=== PATIENT | female | born 1960 | race Caucasian/White ===

== ENCOUNTER 2020-04-06 11:16 | Outpatient (REF) | payer MEDICAID, SELFPAY ==
--- NOTE | 2020-04-06 11:26 | XR_ITS ---
EXAMINATION: XR KNEE, RIGHT CLINICAL INFORMATION: Right knee pain COMPARISON: None TECHNIQUE: Four views of the right knee. FINDINGS: There is no fracture, dislocation, destructive process. There is trace fluid suprapatellar bursa which is mildly thickened. There is no definite joint narrowing. No erosive change or chondrocalcinosis. Small marginal osteophytes are noted at the lateral patella and femoral condyles. There is borderline spurring at the anterior lower patella. Small remnant of an osteochondroma suggested distal medial femur, under 5 mm. XR/XR knee RT 4V IMPRESSION: 1. Probable trace effusion. 2. Small marginal osteophytes. No focal joint narrowing or erosive change. 3. Small remnant osteochondroma distal medial femur under 5 mm.
== END 2020-04-06 11:17 | disposition home or self-care (01) ==
LOC: HO.XRAY 11:16
PROVIDERS: PCP Internal Medicine; Visit Provider Family Medicine
DX: M25.561 Pain in right knee (principal)
CPT/HCPCS: 73564

== ENCOUNTER 2020-07-29 08:04 | Outpatient (REF) | payer MEDICAID, SELFPAY ==
--- NOTE | ~2020-07-29 | XR_ITS ---
EXAMINATION: RIGHT KNEE RADIOGRAPHS CLINICAL INFORMATION: Right knee pain. COMPARISON: Right knee radiographs dated 04/06/2020. TECHNIQUE: AP weightbearing, lateral, and sunrise views of the right knee, FINDINGS: No fracture. Right knee is approximated. Mild medial tibiofemoral compartment joint space narrowing. Small tricompartmental marginal osteophytes. Trace suprapatellar effusion. Tiny sessile osteochondroma along the medial distal femoral metaphysis cortex, unchanged. No lytic or blastic osseous lesions. Normal soft tissues. XR/XR knee RT 2V IMPRESSION: Right knee: Mild arthrosis demonstrated by mild tricompartmental marginal osteophytes and mild medial tibiofemoral compartment joint space narrowing. Small, unchanged sessile distal medial metaphyseal osteochondroma/exostosis.
--- NOTE | ~2020-07-29 | XR_ITS ---
EXAMINATION: RIGHT KNEE RADIOGRAPHS CLINICAL INFORMATION: Right knee pain. COMPARISON: Right knee radiographs dated 04/06/2020. TECHNIQUE: AP weightbearing, lateral, and sunrise views of the right knee, FINDINGS: No fracture. Right knee is approximated. Mild medial tibiofemoral compartment joint space narrowing. Small tricompartmental marginal osteophytes. Trace suprapatellar effusion. Tiny sessile osteochondroma along the medial distal femoral metaphysis cortex, unchanged. No lytic or blastic osseous lesions. Normal soft tissues. XR/XR knee standing BI IMPRESSION: Right knee: Mild arthrosis demonstrated by mild tricompartmental marginal osteophytes and mild medial tibiofemoral compartment joint space narrowing. Small, unchanged sessile distal medial metaphyseal osteochondroma/exostosis.
== END 2020-07-29 08:05 | disposition home or self-care (01) ==
LOC: HO.HOSX 08:04
PROVIDERS: Visit Provider Physician Assistant
DX: M17.11 Unilateral primary osteoarthritis, right knee (principal); M25.561 Pain in right knee; M25.562 Pain in left knee
CPT/HCPCS: 20610; 73560; 73565; 99212; J1040

== ENCOUNTER 2020-09-30 16:00 | Outpatient (RCR) | payer MEDICAID, SELFPAY ==
--- NOTE | 2020-08-12 17:48 | MHC.PT.EP ---
[facility] [place] Office [place] Office [place] Office [address] Sharon Marie [address] [phone] F: [phone] F: [phone] F: [phone] F: [phone] Physical Therapy Plan of Care Date of Evaluation: Date of Surgery: NA Diagnosis: Unilateral primary OA R knee Assessment: 60 year old female referred for unilateral primary OA of R knee . 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 She had a cortisone shot about 2 weeks back. On PT examination she presents with TTP along medial joint line,2/10 pain with weight bearing, decreased knee ROM, decreased hip and knee muscle strength, altered posture, and gait. She would benefit from PT to address the aforementioned impairments to increase tolerance to sitting, standing, walking and stair negotiation. She is highly motivated to participate in therapy and return to PLOF. Frequency and Duration: The patient will be seen 2/week for 6 weeks. Short Term Goals: 1. Pt will have 50% decrease in pain which will enable her to sit for 30 minutes in 2 weeks. 2. Pt will be able to move knee through full plane of motion without pain which will enable her to perform sit to stand transition in 3 weeks. 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 Pt will demonstrate an increase in muscle strength by 1 grade which will increase her tolerance to walking and standing in 5 weeks. 2. Pt will be independent with all HEPs for symptoms management and maintenance following d/c in 5 weeks. 3. Pt will return to PLOF in 6 weeks. Treatment Plan: Modalities to reduce pain, spasms and effusion. Manual therapy to restore motion and function. Therapeutic exercise to improve strength and flexibility. Neuromuscular re-education for posture and balance. Therapeutic activities to return to functional activities of daily living. Electronically signed by: Teresa Sargent, PT, DPT Please sign and return to therapist. Thank you for your referral.
--- NOTE | 2020-10-03 13:22 | MHC.PT.DC ---
[facility] [place] Office [place] Office [place] Office [address] Sharon Marie [address] [phone] F: [phone] F: [phone] F: [phone] F: [phone] Physical Therapy Discharge Report Diagnosis: Unilateral primary OA R knee Date of Surgery: NA Date of Evaluation: 08/12/20 Date of Discharge: 10/03/20 Treatments to Date: 9 Cancellations to Date: 0 No Shows to Date: 0 Discharge Status: Achieved Goals Improved Function Independent with HEP Discharge Summary: Cassandra has completed 9 PT visits. She has made significant improvements in her pain levels. She is independent with her HEP as well. She therefore chose to D/C today 2* to low px levels and inepdndence with HEP. Electronically signed by: Teresa Sargent, PT DPT Please sign and return to therapist. Thank you for your referral.
== END 2020-10-03 13:23 | disposition home or self-care (01) ==
LOC: HO.PT 16:00
PROVIDERS: PCP Internal Medicine; Visit Provider Physician Assistant
DX: M17.11 Unilateral primary osteoarthritis, right knee (principal)
CPT/HCPCS: 97110; 97112; 97140; 97161; 97530

== ENCOUNTER → 2020-10-30 12:58 | Outpatient (BNVA) | payer MEDICAID, SELFPAY | PROVIDERS: Visit Provider Physician Assistant | DX: M17.11 Unilateral primary osteoarthritis, right knee (principal) | CPT/HCPCS: 99212 ==

== ENCOUNTER 2020-11-09 16:44 | Outpatient (REF) | payer MEDICAID, SELFPAY ==
--- NOTE | ~2020-11-09 | MR_ITS ---
EXAMINATION: MR KNEE WITHOUT CONTRAST, RIGHT CLINICAL INFORMATION: Unilateral primary osteoarthritis, right knee. Patient reports right knee pain for 2 months with no recent injury or previous surgery. COMPARISON: XR right knee 07/29/2020. TECHNIQUE: MRI of the knee without contrast was performed using routine sequences on a high-field scanner. FINDINGS: MENISCI: Medial Meniscus: There is an oblique tear of the posterior horn of the medial meniscus extending to mid inferior and posterior nonarticular surfaces. There is a small multiloculated posteromedial parameniscal cyst. There is some degenerative irregularity of the posterior root with reactive edema and cystic change in the adjacent tibia. The tear also involves the body where there is extension to the peripheral inferior and nonarticular surfaces. There is some protrusion of the peripheral inferior aspect of the meniscus toward the meniscotibial recess. There is overall mild medial extrusion of the body. There is globular degenerative signal in the anterior horn and root. There appears to be a subtle superimposed horizontal tear extending to the free edge and inner margin undersurface of the junction of the anterior horn and root. Lateral Meniscus: Intact. LIGAMENTS: Cruciate: Intact. Collateral: Intact. EXTENSOR MECHANISM: Intact. ARTICULAR CARTILAGE/BONE: Patellofemoral Compartment: There is moderate to high-grade cartilage loss throughout the lateral facet of the patella with some involvement of the median ridge. There is minor underlying bone marrow edema. There is patchy [id number] cartilage irregularity and thinning in the femoral trochlea, most prominent centrally and medially. There are small marginal osteophytes. Medial Compartment: There is mild cartilage thinning at the medial margin of the weightbearing medial compartment. As stated above, there is edema and cystic change in the tibia deep to the posterior horn-root junction. Lateral Compartment: There is a small focal cartilage fissure in the central weightbearing portion of the lateral tibial plateau. The lateral femoral cartilage appears intact. There are tiny marginal osteophytes. JOINT FLUID AND BURSAE: Small joint effusion. Tiny Mendoza's cyst. MR/MR knee RT wo con IMPRESSION: 1. Diffuse tear of the medial meniscus. Small posteromedial parameniscal cyst. 2. Overall, moderate patellofemoral and mild medial compartment arthrosis. Small cartilage fissure in the central weightbearing portion of the lateral tibial plateau. 3. Small joint effusion and tiny Mendoza's cyst.
== END 2020-11-09 16:45 | disposition home or self-care (01) ==
LOC: HO.MRI 16:44
PROVIDERS: Visit Provider Physician Assistant
DX: M17.11 Unilateral primary osteoarthritis, right knee (principal)
CPT/HCPCS: 73721

== ENCOUNTER → 2020-11-13 13:06 | Outpatient (BNVA) | payer MEDICAID, SELFPAY | PROVIDERS: Visit Provider Physician Assistant | DX: S83.241D Other tear of medial meniscus, current injury, right knee, subsequent encounter (principal); M17.11 Unilateral primary osteoarthritis, right knee | CPT/HCPCS: 99212 ==

== ENCOUNTER 2020-11-25 08:01 | Day surgery (SDC) | payer MEDICAID, SELFPAY ==
--- NOTE | 2020-11-24 10:43 | HO.ANESPROP2 ---
Documented by User: Robyn Fortune NP 11/24/20 10:47 HPI - Anesthesia Eval Consult details Narrative: 60yo F for Right Knee Arthroscopy PMFSH Active Problems Active Problems: All Active Problems (Updated 11/13/20 @ 13:50 by Arlen Barroso PA-C) Tear of medial meniscus of right knee (Acute) Patellofemoral arthritis of right knee (Acute) Past Medical History Medical History Depressed Surgical History Surgical History Hx of cholecystectomy Social History Social History Patient Tobacco Use Status: Never used Tobacco Use of substances other than those prescribed or required for medical reasons: No Have you been hit, kicked, punched, or otherwise hurt by someone within the past year? 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 Meds Allergies Allergy/AdvReac Type Severity Reaction Status Date / Time No Known Allergies Allergy Verified 10/30/20 13:13 [No Known Allergies*] Home Medications Medication Instructions Recorded Confirmed Last Taken Type albuterol sulfate 90 mcg/actuation 1 inh INHALATION Q6H 04/16/20 Unknown History breath activated powder inhaler bupropion HCl 300 mg 24 hr tablet, mg PO 04/16/20 Unknown History extended release (Wellbutrin XL) estradiol 0.0375 mg/24 hr TRANSDERMAL 04/16/20 Unknown History semiweekly transdermal patch famotidine 20 mg tablet 20 mg PO Q12H 04/16/20 Unknown History gabapentin 100 mg capsule 100 mg PO Q12H 04/16/20 Unknown History loratadine 10 mg tablet 10 mg PO Q24H 04/16/20 Unknown History montelukast 10 mg tablet mg PO 04/16/20 Unknown History polyethylene glycol 3350 8.5 gram 17 g PO Q10M 04/16/20 Unknown History oral powder packet trazodone 100 mg tablet PO 04/16/20 Unknown History Exam Exam Date and Time: November 24, 2020 1043 Assessment and Plan Assessment Anesthesia Assessment: Chart Reviewed Documented by User: Lakeisha Montalvo MD 11/25/20 09:16 PMFSH Past Medical History Medical History Depressed Family History Family history of problems with anesthesia: No Surgical History Surgical History Hx of cholecystectomy History of Problems with Anesthesia: No Social History Social History Patient Tobacco Use Status: Never used Tobacco Use of substances other than those prescribed or required for medical reasons: No Have you been hit, kicked, punched, or otherwise hurt by someone within the past year? 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 Meds Allergies Allergy/AdvReac Type Severity Reaction Status Date / Time No Known Allergies Allergy Verified 10/30/20 13:13 [No Known Allergies*] Home Medications Medication Instructions Recorded Confirmed Last Taken Type albuterol sulfate 90 mcg/actuation 1 inh INHALATION Q6H 04/16/20 Unknown History breath activated powder inhaler bupropion HCl 300 mg 24 hr tablet, mg PO 04/16/20 Unknown History extended release (Wellbutrin XL) estradiol 0.0375 mg/24 hr TRANSDERMAL 04/16/20 Unknown History semiweekly transdermal patch famotidine 20 mg tablet 20 mg PO Q12H 04/16/20 Unknown History gabapentin 100 mg capsule 100 mg PO Q12H 04/16/20 Unknown History loratadine 10 mg tablet 10 mg PO Q24H 04/16/20 Unknown History montelukast 10 mg tablet mg PO 04/16/20 Unknown History polyethylene glycol 3350 8.5 gram 17 g PO Q10M 04/16/20 Unknown History oral powder packet trazodone 100 mg tablet PO 04/16/20 Unknown History Exam Airway Mallampati Class: II TM Dist: >3cm Neck ROM: Full Assessment and Plan Assessment Anesthesia Assessment: Anesthesia Plan Discussed Final Anesthetic Review Family History of Problems with Anesthesia: No History of Problems with Anesthesia: No NPO: Yes ASA Class: II Final Preanesthetic Review: No Changes in Pt Med Stat, Meds/Allgs Chart Reviewed, Consent Obtained/Reviewed and Anes Risks/Benef Reviewed Patient Risk: Low Procedure Risk: Low Assessment/Block/Sedation in SS: Assess/Block/Sedation-SS Anesthetic Plan Anesthetic Plan: GA Disposition: Standard PACU
[2020-11-25] VITALS (13 sets, daily range): BP systolic 113–159; BP diastolic 51–90; PULSE 57–70; RESP 16–20; TEMP 36.3–36.7; O2SAT 95–100; BMI 28.1
[2020-11-25] MEDS: Lactated Ringers 1,000 ML 100 ML IVCONT (08:35)
--- NOTE | 2020-11-25 08:37 | MHC.SHP ---
Pre-Procedural Eval Section A Date of Service: 11/25/20 The patient is an INPATIENT: No Changes since office visit: Yes Patient answered all questions; No Cold of Flu in the past 2 weeks, No New Medical Problems and No Changes in Medication The History & Physical has been completed within 30 days and I have reviewed it.: Yes Section B Chief Complaint: Medial Meniscus tear Allergies: Allergies Allergy/AdvReac Type Severity Reaction Status Date / Time No Known Allergies Allergy Verified 10/30/20 13:13 [No Known Allergies*] Plan I have reviewed the history and physical and performed a pertinent physical examination on my patient. No changes have occurred unless specified.
[2020-11-25] MEDS: fentaNYL citrate/PF 100 MCG/2 ML VIAL 50 MCG IVPUSH ×4 (10:47→11:24)
[2020-11-25] MEDS: oxyCODONE HCl Immed Release 5 MG TABLET PO ×2 (10:52→11:02)
[2020-11-25] MEDS: Acetaminophen 325 MG TABLET 650 MG PO (10:53)
--- NOTE | 2020-12-07 16:49 | P.BOP_ITS ---
Brief Operative Note Date of Service: 11/25/20 Pre-op diagnosis: right knee medial meniscus tear Post-op diagnosis: same Procedure: mmt right knee. 2) PF OA right knee Surgeon: Rubin Pham MD Anesthesia: GETA and local Was an Operations Trainer used for this Procedure?: No Estimated blood loss (mL): 5 IV fluids (mL): 500 Pathology: none sent Condition: stable Disposition: PACU
--- NOTE | 2020-12-07 16:50 | W.PM.OPN ---
Operative Note Operative Note Date of Service: 11/25/20 Narrative: Procedure in detail: Patient was brought to the operative room placed supine on the operative table prepped and draped in standard sterile fashion. Time-out gotten of her purpose hyper procedure proper surgeon IV antibiotics per weight were administered. I began by exsanguinating the limb is slightly tourniquet to 300 mm Hg. I then made a anterolateral stab incision with a 15 blade and placed my blunt trocar atraumatically into the patellofemoral joint. I then insufflated joint placed my 30 degree arthroscope. The patellofemoral joint was notable for a full-thickness large cartilage defect in the central portion of the patellar facet. There was some grade 2 changes of the trochlea. The suprapatellar pouch in the gutters were clean. I descended into the medial compartment where I made my medial portal under direct visualization. There was a degenerative posteromedial meniscus tear. I used a combination of shaver and biter to debride this down to stable edges. Approximately 40% of the meniscal volume was removed. Once this was done I examined the notch which showed intact ACL and lateral compartment which was pristine. I then removed all instrumentation and took my final pictures. I then closed with skin glue and injected an additional 20 mL of 0.25% Marcaine with epinephrine in to the knee joint.
== END 2020-11-25 12:30 | disposition home or self-care (01) ==
PROVIDERS: PCP Internal Medicine; Visit Provider Orthopaedic Surgery
PROC: (CPT 29870; principal; 2020-11-25 09:40)
DX: S83.241A Other tear of medial meniscus, current injury, right knee, initial encounter (principal); M23.031 Cystic meniscus, other medial meniscus, right knee; M71.21 Synovial cyst of popliteal space [Baker], right knee; M17.11 Unilateral primary osteoarthritis, right knee; M25.461 Effusion, right knee; X58.XXXA Exposure to other specified factors, initial encounter; Y93.9 Activity, unspecified; Y92.9 Unspecified place or not applicable; Y99.8 Other external cause status
CPT/HCPCS: 29881; J0171; J0690; J1100; J1885; J2250; J2405; J3010

== ENCOUNTER → 2020-12-04 12:42 | Outpatient (BNVA) | payer MEDICAID, SELFPAY | PROVIDERS: Visit Provider Physician Assistant | DX: M17.11 Unilateral primary osteoarthritis, right knee (principal); S83.241A Other tear of medial meniscus, current injury, right knee, initial encounter; W18.30XA Fall on same level, unspecified, initial encounter; Y93.9 Activity, unspecified; Y92.9 Unspecified place or not applicable; Y99.8 Other external cause status; Z96.651 Presence of right artificial knee joint | CPT/HCPCS: 99212 ==

== ENCOUNTER → 2020-12-10 10:57 | Outpatient (BNVA) | payer MEDICAID, SELFPAY | PROVIDERS: PCP Internal Medicine; Visit Provider Orthopaedic Surgery | DX: S83.241D Other tear of medial meniscus, current injury, right knee, subsequent encounter (principal); M17.11 Unilateral primary osteoarthritis, right knee | CPT/HCPCS: 99212 ==

== ENCOUNTER → 2020-12-28 14:15 | Outpatient (BNVA) | payer MEDICAID, SELFPAY | PROVIDERS: Visit Provider Orthopaedic Surgery | DX: M17.11 Unilateral primary osteoarthritis, right knee (principal); M25.561 Pain in right knee; F32.9 Major depressive disorder, single episode, unspecified; Z96.651 Presence of right artificial knee joint | CPT/HCPCS: 99212 ==

== ENCOUNTER → 2021-01-25 14:56 | Outpatient (BNVA) | payer MEDICAID, SELFPAY | PROVIDERS: Visit Provider Orthopaedic Surgery | DX: S83.241D Other tear of medial meniscus, current injury, right knee, subsequent encounter (principal); M17.11 Unilateral primary osteoarthritis, right knee; M25.669 Stiffness of unspecified knee, not elsewhere classified | CPT/HCPCS: 99212 ==

== ENCOUNTER 2021-02-12 15:00 | Outpatient (RCR) | payer MEDICAID, SELFPAY ==
--- NOTE | 2020-12-15 14:46 | MHC.PT.EP ---
[facility] [place] Office [place] Office [place] Office [address] Sharon Marie [address] [phone] F: [phone] F: [phone] F: [phone] F: [phone] Physical Therapy Plan of Care Date of Evaluation: Date of Surgery: 12/07/20 Diagnosis: s/p R posteromedial meniscectomy on 12/07/20 Assessment: pt presents to physical therapy s/p partial posteromedial meniscectomy on 12/07/20 after failing conservative treatment. pt presents to physical therapy with pain, decreased range of motion, decreased strength, impaired functional mobility, impaired postural awareness, and gait deviations. pt is a good candidate for skilled PT due to age, potential remediation of impairments, typical disease/condition progression and prognosis, comorbidities, and motivation. pt would benefit from tailored strengthening and stretching exercise program, functional training, gait training, postural re-training, neuromuscular re-education, modalities as needed for pain, equipment safety demonstration. Frequency and Duration: The patient will be seen 2x/wk for 8 wks Short Term Goals: pt will be I w/ HEP to promote self-management of condition. pt will improve R knee extension to 0 deg to remediate gait impairments on even ground w/ LRAD. Fdc Goals: pt will report a statistically significant improvement in self-reported outcome measure, LEFI, to promote return to PLOF. pt will report <3/10 R knee pain w/ ambulation >2500' to promote pain-limited return to community ambulation w/ LRAD. Treatment Plan: Modalities to reduce pain, spasms and effusion. Manual therapy to restore motion and function. Therapeutic exercise to improve strength and flexibility. Neuromuscular re-education for posture and balance. Therapeutic activities to return to functional activities of daily living. Electronically signed by: Jadyn Quintero PT, DPT Please sign and return to therapist. Thank you for your referral.
--- NOTE | 2021-02-22 14:25 | MHC.PT.DC ---
[facility] [place] Office [place] Office [place] Office [address] Sharon Marie 140 [facility] [phone] F: [phone] F: [phone] F: [phone] F: [phone] Physical Therapy Discharge Report Diagnosis: s/p R posteromedial meniscectomy on 12/07/20 Date of Surgery: 12/07/20 Date of Evaluation: 12/15/20 Date of Discharge: 02/22/21 Treatments to Date: 18 Cancellations to Date: 1 No Shows to Date: 0 Discharge Status: Improved Function Independent with HEP Recommend MD Follow-up Discharge Summary: The patient did not progress as expected throughout this physical therapy plan of care. She was limited by fear avoidance behaviors and appears to have a psychosomatic limitation to her participation in PT. She was often tearful during her sessions as a result of pain specifically with range of motion of the knee. She has not been making meaningful progress in either range of motion or strength. She was educated to prioritize maintaining her knee range of motion and quadriceps strength to optimize function at home and work. She is independent with her home exercise program and is discharged from this physical therapy plan of care due to lack of progress towards goals. Electronically signed by: Jadyn Quintero PT, DPT Please sign and return to therapist. Thank you for your referral.
== END 2021-02-22 14:26 | disposition home or self-care (01) ==
LOC: HO.PT 15:00
PROVIDERS: PCP Internal Medicine; Visit Provider Physician Assistant
DX: S83.241D Other tear of medial meniscus, current injury, right knee, subsequent encounter (principal)
CPT/HCPCS: 97014; 97110; 97112; 97140; 97161; 97164; 97530

== ENCOUNTER → 2021-02-22 08:23 | Outpatient (BNVA) | payer MEDICAID, SELFPAY | PROVIDERS: PCP Internal Medicine; Visit Provider Orthopaedic Surgery | DX: M17.11 Unilateral primary osteoarthritis, right knee (principal); M25.669 Stiffness of unspecified knee, not elsewhere classified; S83.241D Other tear of medial meniscus, current injury, right knee, subsequent encounter | CPT/HCPCS: 20610; 99212; J1100 ==

== ENCOUNTER → 2021-03-01 08:53 | Outpatient (BNVA) | payer MEDICAID, SELFPAY | PROVIDERS: Visit Provider Orthopaedic Surgery ==

== ENCOUNTER 2021-03-19 15:33 | Outpatient (REF) | payer MEDICAID, SELFPAY ==
--- NOTE | ~2021-03-19 | MR_ITS ---
EXAMINATION: MR KNEE WITHOUT CONTRAST, RIGHT CLINICAL INFORMATION: Knee stiffness. Patient reports meniscal surgery November 2020. COMPARISON: X-ray of the right knee July 2020 TECHNIQUE: MRI of the knee without contrast was performed using routine sequences on a high-field scanner. FINDINGS: Exam is limited because of motion artifact. The patient apparently could not hold still for the exam. MENISCI: Medial Meniscus: There is attenuation of the posterior horn and body which is likely at least, in part, due to prior surgery. However, there is some persistent increased signal in the anterior body of the meniscus and anterior horn which may extend to the tibial articular surface. Findings could reflect postsurgical result but cannot exclude recurrent tear. Lateral Meniscus: Intact. LIGAMENTS: Cruciate: Intact. Collateral: Intact. EXTENSOR MECHANISM: Intact. ARTICULAR CARTILAGE/BONE: Patellofemoral Compartment: There is diffuse high-grade cartilage loss noted throughout most of the lateral facet and median ridge of the patella with associated subchondral cystic change and edema, probably without change compared to prior. Additional cartilage heterogeneity and subchondral cystic change and/or edema in the proximal lateral trochlea. Overall [id number] patellofemoral arthrosis, unchanged. Medial Compartment: Small marginal osteophytes. Cartilage is difficult to assess because of motion artifact. Findings indicative of at least mild arthrosis similar to prior. Lateral Compartment: Normal. JOINT FLUID AND BURSAE: Mild joint effusion. MR/MR knee RT wo con IMPRESSION: Abnormal medial meniscus likely at least, in part, related to postsurgical change. Cannot exclude recurrent meniscal tear particularly in the anterior body and the anterior horn. Stable osteoarthritis.
== END 2021-03-19 15:34 | disposition home or self-care (01) ==
LOC: HO.MRI 15:33
PROVIDERS: PCP Internal Medicine; Visit Provider Orthopaedic Surgery
DX: M17.11 Unilateral primary osteoarthritis, right knee (principal); S83.241D Other tear of medial meniscus, current injury, right knee, subsequent encounter; M25.661 Stiffness of right knee, not elsewhere classified
CPT/HCPCS: 73721

== ENCOUNTER → 2021-03-26 11:15 | Outpatient (BNVA) | payer MEDICAID, SELFPAY | PROVIDERS: PCP Internal Medicine; Visit Provider Orthopaedic Surgery | DX: M25.669 Stiffness of unspecified knee, not elsewhere classified (principal); M17.11 Unilateral primary osteoarthritis, right knee; S83.241D Other tear of medial meniscus, current injury, right knee, subsequent encounter | CPT/HCPCS: 99212 ==

== ENCOUNTER 2021-08-30 10:59 | Outpatient (REF) | payer MEDICAID, SELFPAY ==
--- NOTE | ~2021-08-30 | XR_ITS ---
EXAMINATION: XR KNEE, RIGHT CLINICAL INFORMATION: Pain. COMPARISON: None TECHNIQUE: Four views of the right knee. FINDINGS: There is mild loss of tricompartment joint space with bilateral medial and lateral compartment periarticular spurring. There is mild suprapatellar joint effusion. There is anterior superior patellar enthesophytes. No visible acute fracture or dislocation seen. XR/XR knee RT 4V IMPRESSION: Degenerative changes right knee with mild suprapatellar joint effusion. No loose bodies or bony erosive changes.
== END 2021-08-30 11:00 | disposition home or self-care (01) ==
LOC: HO.XRAY 10:59
PROVIDERS: PCP Internal Medicine; Visit Provider Internal Medicine
DX: M25.561 Pain in right knee (principal)
CPT/HCPCS: 73564

== ENCOUNTER 2023-10-24 16:13 | Outpatient (REF) | payer OTHER, SELFPAY | END 2023-10-24 16:14 | disposition home or self-care (01) | LOC: HO.LNP 16:13 | PROVIDERS: Visit Provider Advanced Practice Midwife | DX: R30.0 Dysuria (principal) | CPT/HCPCS: 87086 ==

== ENCOUNTER 2023-12-01 09:09 | Outpatient (REF) | payer OTHER, SELFPAY ==
[2023-12-05 19:48] LABS: Immunoglobulin A 237 mg/dL (70-320); Transglutaminase Ab IgG <1.0 U/mL; Transglutaminase IgA <1.0 U/mL
== END 2023-12-01 09:10 | disposition home or self-care (01) ==
LOC: HO.CHCLDS 09:09
PROVIDERS: Visit Provider Internal Medicine
DX: K90.49 Malabsorption due to intolerance, not elsewhere classified (principal)
CPT/HCPCS: 36415; 82784; 86364

== ENCOUNTER 2024-07-12 14:20 | Outpatient (REF) | payer OTHER, SELFPAY ==
--- NOTE | ~2024-07-12 | XR_ITS ---
EXAMINATION: XR KNEE, RIGHT CLINICAL INFORMATION: pain COMPARISON: 08/30/2021. TECHNIQUE: Two views of the right knee. FINDINGS: No fracture, dislocation, or bone lesion. Normal bone mineralization. Mild to moderate tricompartmental osteoarthrosis, most significant in the patellofemoral compartment. Spurring of the tibial spines. Normal alignment. Small suprapatellar joint effusion. Normal soft tissues. XR/XR knee RT 2V IMPRESSION: 1. Mild to moderate tricompartmental osteoarthritis, most significant in the patellofemoral joint. 2. Small joint effusion. Electronically signed by: Franck Garcia MD 07/15/2024 03:04 PM EDT
--- OUTSIDE RECORDS SUMMARY | 2024-07-12 15:58 | XMS_ITS | Encounter Summary ---
Author Organization [employer] Address [address] [facility] 7 [place] [address] Care Team Providers Care Shipping Manager Name Role Phone Jamie Lockhart MD Primary Care Prov ider Reason for Visit * Reason Onset Date Comments Triage 03/15/2022 Encounter Details Date Type Department Care Team (Late st Contact Info) Description 03/15/2022 Refill [facility] MEDICINE [address] [place] [address] Jamie Lockhart MD [address] [place] [address] Social History Tobacco Use Types Packs/Day Years Used Date Smoking Tobacco: Never Assessed Comments Unknown Sex and Gender Information Value Date Recorded Sex Assigned at Female 02/07/2022 10:25 AM EDT Legal Sex Female 10:25 AM EDT Gender Identity Female 02/07/2022 10:25 AM EDT Sexual Orientation Straight 02/07/2022 10 :25 AM EDT documented as of this encounter Miscellaneous Notes * Telephone Encounter - Araceli Gonzalez RN - 03/23/2022 12:11 PM EST Triage call Pt reports testing positive for Covid 12 PM. 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 Pt has mild symptoms dry cough, body aches, headache, sneezing, runny nose, neg for fever. Pt is advised if develops fever of 103, chest pain/pressure and difficulty breathing to seek evaluation att hospital. Pt agrees. Home care is reviewed thoroughly with Pt . Pt is advised regarding available medications with in five day window but, Pt declines these at this time. Pt agrees to home care disposition and will call again if needs to. Protocol Used: COVID-19 - Diagnosed or Suspected (Adult) Protocol-Based Disposition: Home Care Positive Triage Question: * [1] COVID-19 diagnosed by positive lab test (e.g., PCR, rapid self-test kit) AND [2] mild symptoms (e.g., cough, fever, others) AND [3] no complications or SOB * All higher-acuity triage questions were negative Care Advice Discussed: * Reassurance and Education - Positive COVID-19 Lab Test and Mild Symptoms * General Care Advice for COVID-19 Symptoms * Cough Medicines * Cough Syrup With Dextromethorphan * Cough Syrup With Dextromethorphan - Extra Notes and Warnings * Humidifier * Coughing Spells * Pain and Fever Medicines * Mild Stomach and Intestinal Symptoms During COVID-19 Illness * Reasons To Call Back - Fever over 103 F (39.4 C) - Fever lasts over 3 days - Fever returns after being gone for 24 hours - Chest pain or difficulty breathing occurs - You become worse * COVID-19 - How to Protect Others - When You Are Sick With COVID-19 * Telephone Encounter - Devon Kilgore - 03/23/2022 11:40 AM EST Symptoms: Cough, Body Aches, Chills, Wheezing Outcome: Schedule an urgent appointment (within 1 hour) or talk to a nurse or provider soon Reason: Pt came out positive with Covid , Pt requesting Paxlovid med The caller accepted this outcome documented in this encounter Plan of Treatment Not on file documented as of this encounter Visit Diagnoses Not on filedocumented in this encounter Care Teams Shipping Manager Relationship Specialty Start Date End Date Jamie Lockhart MD [address] [place] [address] PCP - General Internal Medicine 03/25/19 documented as of this encounter
--- OUTSIDE RECORDS SUMMARY | 2024-07-12 15:58 | XMS_ITS | Encounter Summary ---
Author Organization [employer] Address [address] [place] [address] 7 [place] [address] Care Team Providers Care Dean Of Education Name Role Phone Jamie Lockhart MD Primary Care Prov ider Encounter Details Date Type Department Care Team (Late st Contact Info) Description 08/05/2022 Orders Only [facility]C MED & PEDS [address] [place], [place] [phone] Jamie Lockhart MD [address] [place] [address] Social History Tobacco Use Types Packs/Day Years Used Date Smoking Tobacco: Never Assessed PHQ-2 Answer Date Recorded Patient Health Questionnaire-2 Score 0 04/29/2022 Comments Unknown Sex and Gender Information Value Date Recorded Sex Assigned at Female 02/07/2022 10:25 AM EDT Legal Sex Female 10:25 AM EDT Gender Identity Female 02/07/2022 10:25 AM EDT Sexual Orientation Straight 02/07/2022 10 :25 AM EDT documented as of this encounter Plan of Treatment Not on file documented as of this encounter Visit Diagnoses Not on filedocumented in this encounter Care Teams Dean Of Education Relationship Specialty Start Date End Date Jamie Lockhart MD [address] [place] [address] PCP - General Internal Medicine 03/25/19 documented as of this encounter
--- OUTSIDE RECORDS SUMMARY | 2024-07-12 15:58 | XMS_ITS | Encounter Summary ---
Author Organization [employer] Address [address] [place] [address] 7 [place] [address] Care Team Providers Care Slipman Name Role Phone Jamie Lockhart MD Primary Care Prov ider Encounter Details Date Type Department Care Team (Late st Contact Info) Description 08/10/2022 Orders Only [facility] CHC MED & PEDS [address] [place], [place] [phone] Johana Alarcon LPN Social History Tobacco Use Types Packs/Day Years [...] on filedocumented in this encounter Care Teams Slipman Relationship Specialty Start Date End Date Jamie Lockhart MD [address] [place] [address] PCP - General Internal Medicine 03/25/19 documented as of this encounter
--- OUTSIDE RECORDS SUMMARY | 2024-07-12 15:59 | XMS_ITS | Data Portability ---
Author Organization [facility] [facility] [address] Address [address] [place] [address] Assessment Encounter Date Assessment Date Assessment LastModified by Organization Details LastModified Time 11/06/2023 11/06/2023 You are going to be treated for a Urinary Tract Infection. The following are recommendations to help with your symptoms and recovery: 1. Drink Plenty of fluids - Stay hydrated 2. Finish full antibiotic course 3. I recommend starting a Probiotic - I recommend Florastor 4. If you take Azo - this will help the burning and urgency feeling - just be aware it will turn your urine bright yellow. I would not hesitate to be seen again if you develop: 1. Severe Back Pain 2. Abdominal Pain 3. Nausea and Vomiting 4. Vaginal Discharge or Bleeding 5. Fever > 101.0 You symptoms should improve within 72 hours for a typically UTI. If a urine culture was sent out to the lab for you we should get the results back within 4 days. This will be able to prove that your symptoms are caused by a UTI and it will also verify that the correct antibiotic was prescribed. Thank you for using [employer] - please don't hesistate to call our office if you have any questions or concerns. ines Not available 11/06/2023 16:12:22 Plan of Treatment Reminders Order Date Submit Date Provider Last Modified By Organization Details Last Modified Time Details Appointments None recorded. Lab urinalysis, dipstick 2023 024 ines _wendy avery, [address] [place] [address], [id number], 16:12:26 culture, urine 2023 024 ROHAN [facility] ([place]), [address], [place], [address], 22:06:04 Referral None recorded. Procedures None recorded. Surgeries None recorded. Imaging None recorded. Medication Orders cephalexin 500 mg capsule 2023 PROSPECT [id number], [address] [facility], [facility], [place], [address], 16:12:37 Patient TargetsNo targets recorded. Patient InstructionsNo instructions recorded. Reason for Referral None Reported. Results Created Date Observation Date Name Description Value Unit Range Abnormal Flag Note LastModifiedBy Organization Detail LastModifiedTime 11/06/1911/07/2023 URINE CULTU RE, ROUTI NE urine culture, routine FINAL REPORT Not Available [facility] ([facility]) [address] [place], [address], 11/07/2023 22:06:04 11/06/19 24 11/07/2023 URINE CULTU RE, ROUTI NE result 1 COMMEN T Mixed uroge nital zak Not Available [facility] ([facility]) [address] [facility], [place], [address], 11/07/2023 22:06:04 11/06/19 24 11/06/2023 urina lysis , dipst ick Unknown Analyte Yellow Not Available wendy [address], [address], 11/06/2023 15:36:04 11/06/19 24 11/06/2023 urina lysis , dipst ick Unknown Analyte Slight ly Cloudy Not Available elizabeth boggs [address] [place], [address], 11/06/2023 15:36:04 11/06/19 24 11/06/2023 urina lysis , dipst ick Unknown Analyte Negati ve Not Available elizabeth boggs [address] [place], [address], 11/06/2023 15:36:04 11/06/19 24 11/06/2023 urina lysis , dipst ick Unknown Analyte Negati ve Not Available elizabeth boggs [address] [place], [address], 11/06/2023 15:36:04 11/06/19 24 11/06/2023 urina lysis , dipst ick Unknown Analyte Negati ve Not Available elizabeth boggs [address] [place], [address], 11/06/2023 15:36:04 11/06/19 24 11/06/2023 urina lysis , dipst ick Unknown Analyte 1.030 Not Available wendy [address] [place], [address], 11/06/2023 15:36:04 11/06/19 24 11/06/2023 urina lysis , dipst ick Unknown Analyte Modera te Not Available elizabeth boggs [address] [place], [address], 11/06/2023 15:36:04 11/06/19 24 11/06/2023 urina lysis , dipst ick Unknown Analyte 5.5 Not Available wendy [address] [place], [address], 11/06/2023 15:36:04 11/06/19 24 11/06/2023 urina lysis , dipst ick Unknown Analyte 100 mg/dL Not Available elizabeth boggs [address] [place], [address], 11/06/2023 15:36:04 11/06/19 24 11/06/2023 urina lysis , dipst ick Unknown Analyte 0.2 E.U./d L Not Available [facility] [address] [place], [address], 11/06/2023 15:36:04 11/06/19 24 11/06/2023 urina lysis , dipst ick Unknown Analyte Negati ve Not Available elizabeth yr [facility] [address] [place], [address], 11/06/2023 15:36:04 11/06/19 24 11/06/2023 urina lysis , dipst ick Unknown Analyte Negati ve Not Available elizabeth yr [facility] [address] [place], [address], 11/06/2023 15:36:04 Result Notes None recorded. 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 Medical Equipment None Reported. Allergies No known drug allergies Medications Name Sig Start Date Stop Date Status Note LastModified by Organization Details LastModified Time phenazopyri dine 200 mg tablet PLEASE SEE ATTACHED FOR DETAILED DIRECTION S 11/05 completed Not Available Not Available Not Available venlafaxine ER 150 mg capsule,ext ended release 24 hr TAKE 1 CAPSULE (150 MG) BY MOUTH IN THE MORNING active Not Available Not Available No t Available sumatriptan 50 mg tablet MAY REPEAT DOSE ONCE IN 2 HOURS IF NO RELIEF. DO NOT EXCEED 2 DOSES IN 24 HOURS. active Not Available Not Available No t Available propranolol 60 mg tablet TAKE 1 TABLET BY MOUTH TWICE A DAY FOR 30 DAYS active Not Available Not Available No t Available estradiol 0.05 mg/[address] PATCH ONTO THE SKIN 2 TIMES A WEEK. active Not Available Not Available No t Available terbinafine HCl 250 mg tablet TAKE 1 TABLET (250 MG) BY MOUTH ONCE PER DAY. active Not Available Not Available No t Available cephalexin 500 mg capsule TAKE 1 CAPSULE BY MOUTH EVERY 6 HOURS FOR 5 DAYS active Not Available Not Available No t Available hydroxyzine HCl 25 mg tablet TAKE 1 TABLET (25 MG) BY MOUTH IF NEEDED IN THE MORNING, AT NOON, AND AT BEDTIME FOR ANXIETY. 11/05 completed Not Available Not Available Not Available ondansetron 4 mg disintegrat ing tablet DISSOLVE 1 TAB BY MOUTH ON TONGUE DAILY 30 active Not Available Not Available No t Available Murine Ear 6.5 % drops ADMINISTE R 5-10 DROPS INTO AFFECTED EAR(S) 2 TIMES DAILY FOR 4 DAYS. active Not Available Not Available No t Available progesteron e micronized 100 mg capsule TAKE 1 CAPSULE BY MOUTH EVERY DAY active Not Available Not Available No t Available nitrofurant oin monohydrate /macrocryst als 100 mg capsule TAKE 1 CAPSULE BY MOUTH TWICE A DAY FOR 7 DAYS 11/05 completed Not Available Not Available Not Available Vitals Date Recorded Body height Body mass index (BMI) Body weight Respiratory rate Body temperature Heart rate Oxygen saturation Oxygen saturation in Arterial blood by Pulse oximetry Systolic blood pressure Diastolic blood pressure Provider Name and Address Organization Details Last Updated DateTime 170.18 cm 27.9 kg/m2 15922.4 4 g 18 /min 98 [degF] 97 /min 97 % 97 % 122 mm[Hg] 78 mm[Hg] Lur[facility] 15:37:41 Social History Question Answer Notes LastModified by Organizat ion Details LastModified Time Tobacco Smoking Status Never Smoker Lurdes candelario PA Tita [facility] 11/06/2023 15:35:43 What Is Your Level Of Alcohol Consumption? Occasional Information not available 11/06/2023 Do You Use Any Illicit Or Recreational Drugs? Yes Marijuana Information not available 11/06/2023 Have You Recently Traveled Abroad? No Information not available 11/06/2023 Do You Or Have You Ever Used Any Other Forms Of Tobacco Or Nicotine? No Information not available 11/06/2023 Sex: Unknown Functional Status None recorded. Mental Status None recorded. Family History Relationship Description Onset Age of this Age Resolved Age Notes LastModified by Organization Details LastModified Time Father No current problems or disability Not available 11/05 15:35:22 Mother No current problems or disability Not available 11/05 15:35:22 Medical History No medical history recorded. Gynecological HistoryNo gynecological history recorded. 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 Health Concerns Section Related Observation LastModified by Organization Detai ls LastModified Time None Recorded Concern Status LastModified by Organization Details LastModified Time None Recorded Advance Directives Directive None Recorded Payers Encounter Date Sequence Insurance Name Policy Number Policy Warern Covered Member ID Warren Member ID Guarantor Name 11/06/2023 1 [facility] [id number] Cassandra Vidal [id number] Cassandra Vidal Notes Date Note Type Note Provider Name and Address Organization Details Recorded Time 11/06/2023 text/html Urinary Complain t FemaleReported [email or web address] Symptoms:no pain in the flank; no fever/chills; no incontinence;pain during urination;urgency;ur inary frequency Severity:moderate Modifying Factors:nothing gives relief pt reports urinary pressure , urgency and hesitancy onset three days agofeels similar to UTI'no low back pain, CATHRYN STEINBERG NP [address] [place], [address], [place] - [facility] 11/06/2023 16:15:02 OBGyn Episode No OBEpisode recorded.
--- OUTSIDE RECORDS SUMMARY | 2024-07-12 15:59 | XMS_ITS | Encounter Summary ---
Author Organization [employer] Address [address] [facility] 7 [place] [address] Care Team Providers Care Statistical Financial Analyst Name Role Phone Jamie Lockhart MD Primary Care Prov ider Reason for Visit * Reason Onset Date Comments Results 07/29/2022 Encounter Details Date Type Department Care Team ([facility] st Contact Info) Description 07/29/2022 Telephone [facility] MEDICINE [address] [place] [address] Jamie Lockhart MD [address] [place] [address] Results Social History Tobacco Use Types Packs/Day Years [...] encounter Miscellaneous Notes * Telephone Encounter - Rosa Morales RN - 07/29/2022 10:27 AM EDT TC placed to pt at [phone] in regards to below message. Informed pt of lab results and her cholesterol levels. Pt states she is currently on a diet and losing weight. Informed pt RN would relay message to PCP to inquire. Pt verbalized understanding and will stick to eating healthier to help her cholesterol go down. Pt to f/u PRN. * Telephone Encounter - Dong Estrada - 07/29/2022 10:21 AM EDT Tc from pt requesting a call back regarding blood work results. Please contact pt at [phone] documented in this encounter Plan of Treatment Not on file documented as of this encounter Visit Diagnoses Not on filedocumented in this encounter Care Teams Statistical Financial Analyst Relationship Specialty Start Date End Date Jamie Lockhart MD [address] [place] [address] PCP - General Internal Medicine 03/25/19 documented as of this encounter
--- OUTSIDE RECORDS SUMMARY | 2024-07-12 15:59 | XMS_ITS | Encounter Summary ---
Author Organization [employer] Address [address] [place] [address] 7 [place] [address] Care Team Providers Care Hvac Refrigeration Technician Name Role Phone Jamie Lockhart MD Primary Care Prov ider Reason for Visit * Reason Onset Date Comments Referral 12/22/2022 Encounter Details Date Type Department Care Team ([facility] st Contact Info) Description 12/22/2022 Telephone [facility] CHC MED & PEDS [address] [place] [address] Jamie Lockhart MD [address] [place] [address] Referral Social History Tobacco Use Types Packs/Day Years Used Date Smoking Tobacco: Never Assessed Depression Answer Date Recorded Patient Health Questionnaire-9 Score 13 10/03/2022 Depression Answer Date Recorded Patient Health Questionnaire-2 Score 3 10/03/2022 Comments Unknown Sex and Gender Information Value Date Recorded Sex Assigned at Female 02/07/2022 10:25 AM EDT Legal Sex Female 10:25 AM EDT Gender Identity Female 02/07/2022 10:25 AM EDT Sexual Orientation Straight 02/07/2022 10 :25 AM EDT documented as of this encounter Miscellaneous Notes * Telephone Encounter - Emeli Lorenzana - 12/26/2022 3:57 PM EDT VM left for patient that they are no energy management specialist in the area that accepts her insurance. I advised her to call her insurance to see if they can provide any information of energy management specialist that will accept her insurance and call us and we will fax referral. * Telephone Encounter - Christina Marquez - 12/22/2022 8:23 AM EDT Tc from pt requesting status on derm referral and where it may have been sent to . documented in this encounter Plan of Treatment Not on file documented as of this encounter Visit Diagnoses Not on filedocumented in this encounter Additional Health Concerns Assessment Noted Time PHQ-9 Depression Total Score: 13 023 11:23 AM EDT documented as of this encounter Care Teams Hvac Refrigeration Technician Relationship Specialty Start Date End Date Jamie Lockhart MD [address] [place] [address] PCP - General Internal Medicine 03/25/19 documented as of this encounter
--- OUTSIDE RECORDS SUMMARY | 2024-07-12 15:59 | XMS_ITS | Encounter Summary ---
Author Organization [employer] Address [address] [facility] 7t [place] [address] Care Team Providers Care Drill Operator Pneumatic Name Role Phone Jamie Lockhart MD Primary Care Prov ider Encounter Details Date Type Department Care Team ([facility] st Contact Info) Description 07/12/2024 1:40 PM EDT Office Visit [facility] CHC MED & PEDS [address] [place], [place] [phone] Celi Berrios MD [address] [place] [address] Acute pain of right knee (Primary Dx) Social History Tobacco Use Types Packs/Day Years Used Date Smoking Tobacco: Never Smokeless Tobacco: Never Alcohol Use Standard Drinks/Week Comments Yes 0 (1 standard drink = 0.6 oz pur e alcohol) Depression Answer Date Recorded Patient Health Questionnaire-9 Score 1 04/13/2023 Patient Health Questionnaire-9 Score 1 04/13/2023 Last PHQ-9: Questionnaire Data Not on file 0 04/13/2023 Housing Stability Answer Date Recorded What is your housing situation today? I have neida brody 12/18/[address] you li ve. Do you have problems with any of the following? None of the above 12/18/2023 Food Insecurity Answer Date Recorded Within the past 12 months, y ou worried that your food would run out before you got money to buy more: Never True 12/18/2023 Within the past 12 months,th e food you bought just didn't last and you didn't have enough money to get more: Never True 12/2023 Transportation Answer Date Recorded In the past 12 months, has l ack of transportation kept you from medical appts, meetings, work or from getting things needed for daily living? No 12/18/2023 Utilities Answer Date Recorded In the past 12 months, has t he electric, gas, oil or water company threatened to shut off services in your home? No 12/18/2023 Depression Answer Date Recorded Patient Health Questionnaire-2 Score 1 04/13/2023 Internet Access Answer Date Recorded Internet Access Q1 Yes 12/18/2023 Internet Access Q2 Not on file 12/18/2023 Comments No Sex and Gender Information Value Date Recorded Sex Assigned at Female 02/07/2022 10:25 AM EDT Legal Sex Female 10:25 AM EDT Gender Identity Female 02/07/2022 10:25 AM EDT Sexual Orientation Straight 02/07/2022 10 :25 AM EDT documented as of this encounter Last Filed Vital Signs Vital Sign Reading Time Taken Comments Blood Pressure 121/58 07/12/2024 1:29 PM EDT Pulse 70 07/12/2024 1:29 PM EDT Temperature 36.1 ??C (97 ??F) 07/12/2024 1:29 PM EDT Respiratory Rate 16 07/12/2024 1:29 PM EDT Oxygen Saturation 96% 07/12/2024 1:29 PM EDT Inhaled Oxygen Concentration - - Weight 82.1 kg (181 lb) 07/12/2024 1:29 PM EDT Height 170 cm (5' 6.93 ) 07/12/2024 1:29 PM EDT Body Mass Index 28.41 07/12/2024 1:29 PM EDT documented in this encounter Progress Notes * Celi Berrios MD - 07/12/2024 1:40 PM EDT Subjective Patient ID: Cassandra Vidal is a 63 y.o. female who presents for No chief complaint on file.. Knee Pain The pain is present in the right knee. The quality of the pain is described as aching. The pain is at a severity of 6/10. The pain is moderate. The pain has been Fluctuating since onset. Associated symptoms include an inability to bear weight. The symptoms are aggravated by movement and weight bearing. Review of Systems Constitutional: Negative. Respiratory: Negative. Negative for shortness of breath. Cardiovascular: Negative for chest pain and palpitations. Gastrointestinal: Negative. Genitourinary: Negative. Musculoskeletal: Negative for neck pain. Neurological: Negative for headaches. Objective Physical Exam Constitutional: Appearance: Normal appearance. Cardiovascular: Rate and Rhythm: Normal rate and regular rhythm. Pulses: Normal pulses. Heart sounds: Normal heart sounds. Pulmonary: Effort: Pulmonary effort is normal. Musculoskeletal: Right knee: Tenderness present. Neurological: Mental Status: She is alert. Assessment/Plan Diagnoses and all orders for this visit: Acute pain of right knee Comments: Xray ordered today Advised Ibuprofen/ tylenol and Ice Advised strength training Orders: - XR Knee 1-2 Views Right; Future Other orders - ibuprofen 800 MG tablet; Take 1 tablet (800 mg) by mouth 3 times daily. - acetaminophen (Tylenol Extra Strength) 500 MG tablet; Take 1 tablet (500 mg) by mouth every 6 (six) hours if needed for mild pain. documented in this encounter Plan of Treatment Scheduled Orders Name Type Priority Associated Diagnoses Orde r Schedule XR Knee 1-2 Views Right Imaging Routine Acute pain of right knee Expected: 07/12/2024, Expires: 07/12/2025 documented as of this encounter Visit Diagnoses Diagnosis Acute pain of right knee- Primary documented in this encounter Additional Health Concerns Assessment Noted Time PHQ-9 Depression Total Score: 1 04/13/19 24 8:48 AM EST documented as of this encounter Care Teams Drill Operator Pneumatic Relationship Specialty Start Date End Date Jamie Lockhart MD [address] [place] [address] PCP - General Internal Medicine 03/25/19 documented as of this encounter
--- OUTSIDE RECORDS SUMMARY | 2024-07-12 15:59 | XMS_ITS | Encounter Summary ---
Author Organization [employer] Address [address] [place] [address] 7 [place] [address] Care Team Providers Care Office 365 Consultant Name Role Phone Jamie Lockhart MD Primary Care Prov ider Encounter Details Date Type Department Care Team (Late st Contact Info) Description 07/18/2022 Orders Only [facility] CHC MED & PEDS [address] [place], [place] [phone] Jamie Lockhart MD [address] [place] [address] Social History Tobacco Use Types Packs/Day Years [...] on filedocumented in this encounter Care Teams Office 365 Consultant Relationship Specialty Start Date End Date Jamie Lockhart MD [address] [place] [address] PCP - General Internal Medicine 03/25/19 documented as of this encounter
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
--- OUTSIDE RECORDS SUMMARY | 2024-07-12 15:59 | XMS_ITS | Encounter Summary ---
Author Organization [employer] Address [address] [facility] 7t [place] [address] Care Team Providers Care Russian Rubber Name Role Phone Jamie Lockhart MD Primary Care Prov ider Encounter Details Date Type Department Care Team (Latest Contact Info) Description 07/12/2024 Travel Social History Tobacco Use Types Packs/Day Years [...] documented as of this encounter Care Teams Russian Rubber Relationship Specialty Start Date End Date Jamie Lockhart MD [address] [place] [address] PCP - General Internal Medicine 03/25/19 documented as of this encounter
--- OUTSIDE RECORDS SUMMARY | 2024-07-12 15:59 | XMS_ITS | Encounter Summary ---
Author Organization [employer] Address [address] [facility] 7 [place] [address] Care Team Providers Care Welding Machine Operator Submerged Arc Name Role Phone Jamie Lockhart MD Primary Care Prov ider Reason for Visit * Reason Comments Med Refill Encounter Details Date Type Department Care Team ([facility] st Contact Info) Description 03/28/2024 Refill [facility] CHC MED & PEDS [address] [place], [place] [phone] Jamie Lockhart MD [address] [place] [address] Social History Tobacco Use Types Packs/Day Years [...] documented as of this encounter Care Teams Welding Machine Operator Submerged Arc Relationship Specialty Start Date End Date Jamie Lockhart MD [address] [place] [address] PCP - General Internal Medicine 03/25/19 documented as of this encounter
--- OUTSIDE RECORDS SUMMARY | 2024-07-12 15:59 | XMS_ITS | Encounter Summary ---
Author Organization [employer] Address [address] [facility] 7 [place] [address] Care Team Providers Care Shiftman Name Role Phone Jamie Lockhart MD Primary Care Prov ider Reason for Visit * Reason Onset Date Comments Appointment Request 05/31/2023 Encounter Details Date Type Department Care Team ([facility] st Contact Info) Description 05/31/2023 Telephone [facility] MEDICINE [address] [place] [address] Jamie Lockhart MD [address] [place] [address] Appointment Request Social History Tobacco Use Types Packs/Day Years Used Date Smoking Tobacco: Never Assessed Depression Answer Date Recorded Patient Health Questionnaire-9 Score 1 04/13/2023 Patient Health Questionnaire-9 Score 1 04/13/2023 Last PHQ-9: Questionnaire Data Not on file 0 04/13/2023 Housing Stability Answer Date Recorded What is your housing situation today? I have neida brody 01/23/[address] you li ve. Do you have problems with any of the following? None of the above 01/23/2023 Food Insecurity Answer Date Recorded Within the past 12 months, y ou worried that your food would run out before you got money to buy more: Never True 01/23/2023 Within the past 12 months,th e food you bought just didn't last and you didn't have enough money to get more: Never True Transportation Answer Date Recorded In the past 12 months, has l ack of transportation kept you from medical appts, meetings, work or from getting things needed for daily living? No 01/23/2023 Utilities Answer Date Recorded In the past 12 months, has t he electric, gas, oil or water company threatened to shut off services in your home? No 01/23/2023 Depression Answer Date Recorded Patient Health Questionnaire-2 Score 1 04/13/2023 Comments Unknown Sex and Gender Information Value Date Recorded Sex Assigned at Female 02/07/2022 10:25 AM EDT Legal Sex Female 10:25 AM EDT Gender Identity Female 02/07/2022 10:25 AM EDT Sexual Orientation Straight 02/07/2022 10 :25 AM EDT documented as of this encounter Miscellaneous Notes * Telephone Encounter - Bradyjanie Aguillon - 05/31/2023 9:40 AM EST Tc from pt requesting appt with Water Quality Assistant, pt denied any immediate concerns. Please contact pt at [phone]. documented in this encounter Plan of Treatment Not on file documented as of this encounter Visit Diagnoses Not on filedocumented in this encounter Additional Health Concerns Assessment Noted Time PHQ-9 Depression Total Score: 1 04/13/19 24 8:48 AM EST documented as of this encounter Care Teams Shiftman Relationship Specialty Start Date End Date Jamie Lockhart MD [address] [place] [phone] PCP - General Internal Medicine 03/25/19 documented as of this encounter
--- OUTSIDE RECORDS SUMMARY | 2024-07-12 15:59 | XMS_ITS | Encounter Summary ---
Author Organization [employer] Address [address] [place] [address] Care Team Providers Care Analytical Research Chemist Name Role Phone Jamie Lockhart MD Primary Care Prov ider Reason for Visit * Reason Onset Date Comments Referral 11/23/2022 dermatology Encounter Details Date Type Department Care Team ([facility] st Contact Info) Description 11/23/2022 Telephone [facility] MED & PEDS [address] [place] [address] Jamie Lockhart MD [address] [place] [address] Referral (dermatology) Social History Tobacco Use Types Packs/Day Years [...] encounter Miscellaneous Notes * Telephone Encounter - Rajwinder Ragland RN - 11/23/2022 3:09 PM EDT Office visit note not available at this time. Will forward below to PCP to review. Please advise. Thank you. * Telephone Encounter - Jesi Padilla - 11/23/2022 1:28 PM EDT Tc from patient requesting the status of dermatology referral talked about in the last tele visit appt on 11/03/22. documented in this encounter Plan of Treatment Not on file documented as of this encounter Visit Diagnoses Not on filedocumented in this encounter Additional Health Concerns Assessment Noted Time PHQ-9 Depression Total Score: 13 023 11:23 AM EDT documented as of this encounter Care Teams Analytical Research Chemist Relationship Specialty Start Date End Date Jamie Lockhart MD [address] [place] [phone] PCP - General Internal Medicine 03/25/19 documented as of this encounter
--- OUTSIDE RECORDS SUMMARY | 2024-07-12 15:59 | XMS_ITS | Encounter Summary ---
Author Organization [employer] Address [address] [facility] 7 [place] [address] Care Team Providers Care Drivers License Examiner Name Role Phone Jamie Lockhart MD Primary Care Prov ider Reason for Visit * Reason Onset Date Comments Nurse Triage 10/18/2023 Encounter Details Date Type Department Care Team ([facility] st Contact Info) Description 10/18/2023 Telephone [facility] MEDICINE [address] [place] [address] Jamie Lockhart MD [address] [place] [phone] Nurse Triage Social History Tobacco Use Types Packs/Day Years Used Date Smoking Tobacco: Never Smokeless Tobacco: Never Depression Answer Date Recorded Patient Health Questionnaire-9 [...] Telephone Encounter - Lisette Shore LPN - 10/18/2023 3:23 PM EDT Triage call returned to patient who reports that she is having pain in her ears after she uses Debrox for wax build up. Due to have ears flushed on 10/27/23. Patient reports that she had ear issues asa child and has been seen previously to have ears flushed. No fever or drainage from ears. Advised to contact ENT as she previously used them for care. Team tasked to update PCP on patient reaction with use of ear drops as ordered and follow with patient. Multiple (2) protocols were used on this call. Disposition for Call: Callback or Video Visit by PCP Today Protocol Used: Medication Question Call (Adult) Protocol-Based Disposition: Callback or Video Visit by PCP Today Video visit not offered Positive Triage Question: * Caller has NON-URGENT medicine question about med that PCP or specialist prescribed and triager unable to answer question * All higher-acuity triage questions were negative Protocol Used: Earwax (Adult) Protocol-Based Disposition: See in Office or Video Visit within 3 Days Video visit not offered Positive Triage Question: * Patient wants to be seen * All higher-acuity triage questions were negative Care Advice Discussed: * Reasons To Call Back - Earache occurs - You become worse - You have more questions * Telephone Encounter - Makayla Ryano - 10/18/2023 2:54 PM EDT Symptom: Medication Reaction Outcome: Schedule an urgent appointment (within 1 hour) or talk to a nurse or provider soon Reason: Pt stated when put eardrops she get earache The caller accepted this outcome documented in this encounter Plan of Treatment Not on file documented as of this encounter Visit Diagnoses Not on filedocumented in this encounter Additional Health Concerns Assessment Noted Time PHQ-9 Depression Total Score: 1 04/13/19 24 8:48 AM EST documented as of this encounter Care Teams Drivers License Examiner Relationship Specialty Start Date End Date Jamie Lockhart MD [address] [place] [phone] PCP - General Internal Medicine 03/25/19 documented as of this encounter
== END 2024-07-12 14:21 | disposition home or self-care (01) ==
LOC: HO.LAB 14:20
PROVIDERS: PCP Internal Medicine; Visit Provider Student in an Organized Health Care Education/Training Program
DX: M25.561 Pain in right knee (principal)
CPT/HCPCS: 73560

== ENCOUNTER → 2024-07-12 14:25 | Outpatient (BNV) | payer OTHER, SELFPAY | PROVIDERS: PCP Internal Medicine; Visit Provider Radiology Diagnostic Radiology | DX: M25.461 Effusion, right knee (principal); M19.011 Primary osteoarthritis, right shoulder | CPT/HCPCS: 73560 ==

== ENCOUNTER 2025-03-11 09:54 | Outpatient (REF) | payer MEDICAID, SELFPAY ==
--- NOTE | 2025-03-11 10:05 | EMG_ITS ---
Chief complaint: Right leg numbness Referred by: Dr. Chantelle Pearson Procedure done: NCS and EMG of right lower extremity Right peroneal and tibial motor studies were performed. Right superficial peroneal and sural sensory studies were performed median and lateral mixed plantars sensory studies were performed tibial H-reflex was obtained and needle examination was performed. Findings: Right peroneal motor stimulation did not reveal any significant amplitude. Distal latencies was severely delayed. Tibial motor response did not reveal any significant abnormality. Right superficial peroneal conduction velocity was borderline slow was severe reduction of amplitude. Sural study revealed significant reduction of amplitude with mild slowing of conduction velocity. Impression: 1. 

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
--- OUTSIDE RECORDS SUMMARY | 2025-03-11 11:07 | XMS_ITS | Encounter Summary ---
Author Organization [facility] Address [address] [facility] [address] [place] [address] Phone Care Team Providers Care Wedding Makeup Artist Name Role Phone Walter Pacheco MD Unavailable Jamie Lockhart MD Primary Care Prov ider Encounter Details Date Type Department Care Team (Late st Contact Info) Description 11/15/2023 Procedure Pass [facility] - [address] [place] [address] Social History Tobacco Use Types Packs/Day Years Used Date Smoking Tobacco: Never Smokeless Tobacco: Never Alcohol Use Standard Drinks/Week Comments Yes 0 (1 standard drink = 0.6 oz pur e alcohol) Socially Education Answer Date Recorded Are you interested in more education? Not on caty e 08/05/2022 Are you concerned about learning? Not on file 08/05/2022 No 08/05/2022 No 08/05/2022 Digital Access Answer Date Recorded No 09/05/2022 No 09/05/2022 Reliable internet access at home? Not on file 09/05/2022 Device with a working camera? 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 Not on file Not on file Not on file documented as of this encounter Plan of Treatment Not on file documented as of this encounter Visit Diagnoses Not on filedocumented in this encounter Care Teams Wedding Makeup Artist Relationship Specialty Start Date End Date Jamie Lockhart MD [address] [place] [address] PCP - General Internal Medicine 11/14/22 Walter Pacheco MD [address] [place] [address] [email or web address] Historical LMR Provider 01/24/17 documented as of this encounter Additional Source Comments The information contained in this document represents components of the legal health record. It is not the complete legal health record.[facility]
--- OUTSIDE RECORDS SUMMARY | 2025-03-11 11:07 | XMS_ITS | Encounter Summary ---
Author Organization [employer] Address 75 [facility] 7 [place] [address] Care Team Providers Care Network Program Manager Name Role Phone Jamie Lockhart MD Primary Care Prov ider Reason for Visit * Reason Onset Date Comments renewal referral 02/03/2025 Encounter Details Date Type Department Care Team ([facility] st Contact Info) Description 02/03/2025 Telephone [facility] MEDICINE [address] [place] [address] Jamie Lockhart MD [address] [place] [address] renewal referral Social History Tobacco Use Types Packs/Day Years Used Date Smoking Tobacco: Never Smokeless Tobacco: Never Alcohol Use Standard Drinks/Week Comments Yes 0 (1 standard drink = 0.6 oz pur e alcohol) Depression Answer Date Recorded Patient Health Questionnaire-9 Score 5 10/01/2024 Patient Health Questionnaire-9 Score 5 10/01/2024 Last PHQ-9: Questionnaire Data Not on file 0 10/01/2024 Housing Stability Answer Date Recorded What is [...] Answer Date Recorded Patient Health Questionnaire-2 Score 2 10/01/2024 Internet Access Answer Date Recorded Internet Access [...] encounter Miscellaneous Notes * Telephone Encounter - Gisele Whittington - 02/14/2025 11:39 AM EST Tc from pt requesting a call back regarding prior message Contact pt at [phone] * Telephone Encounter - Ivania Mooney - 02/03/2025 3:15 PM EDT TC from pt requesting a ENT renewal referral Simon Godoy MD PCP DR. Lockhart documented in this encounter Plan of Treatment Not on file documented as of this encounter Visit Diagnoses Not on filedocumented in this encounter Additional Health Concerns Assessment Noted Time PHQ-9 Depression Total Score: 5 10/02/19 25 3:00 PM EDT documented as of this encounter Care Teams Network Program Manager Relationship Specialty Start Date End Date Jamie Lockhart MD [address] [place] [address] PCP - General Internal Medicine 03/25/19 documented as of this encounter
--- OUTSIDE RECORDS SUMMARY | 2025-03-11 11:07 | XMS_ITS | Encounter Summary ---
Author Organization [employer] Address 75 [facility] 7 [place] [address] Care Team Providers Care Product Support Engineer Name Role Phone Jamie Lockhart MD Primary Care Prov ider Reason for Visit * Reason Onset Date Comments Appointment Request 05/31/2023 Encounter Details Date Type Department Care Team ([facility] st Contact Info) Description 05/31/2023 Telephone [facility] MEDICINE [address] [place] [address] Jamie Lockhart MD [address] [place] [address] Appointment Request Social History Tobacco Use Types [...] encounter Miscellaneous Notes * Telephone Encounter - Brady Aguillon - 05/31/2023 9:40 AM EST Tc from pt requesting appt with Media Law Faculty Member, pt denied any immediate concerns. Please contact pt at [phone]. documented in this encounter Plan of Treatment Not on file documented as of this encounter Visit Diagnoses Not on filedocumented in this encounter Additional Health Concerns Assessment Noted Time PHQ-9 Depression Total Score: 1 04/13/19 24 8:48 AM EST documented as of this encounter Care Teams Product Support Engineer Relationship Specialty Start Date End Date Jamie Lockhart MD [address] [place] [phone] PCP - General Internal Medicine 03/25/19 documented as of this encounter
--- OUTSIDE RECORDS SUMMARY | 2025-03-11 11:07 | XMS_ITS | Encounter Summary ---
Author Organization [facility] Address [address] [facility] [address] [place] [address] Phone Care Team Providers Care Trust Accounts Supervisor Name Role Phone Kaz Brittney Jama ASSISTANT PROFESSOR OF ART Unavailable [phone] Walter Pacheco MD Unavailable Rylee Marion REVIT DRAFTER Unavailable [phone] Shantell Jackman ASSISTANT PROFESSOR OF ART Unavailable [phone] Erinn John MD Unavailable [phone] Valentina Vaca ASSISTANT PROFESSOR OF ART Unavailable [phone] Deysi Oneill MD Unavailable [phone] Rik Hernandez MD Unavailable Karime Godoy MD Unavailable [phone] Pcp, Unknown Primary Care Provider Unavailabl e Jamie Lockhart MD Primary Care Prov ider Encounter Details Date Type Department Care Team (Late st Contact Info) Description 04/14/2021 Procedure Pass [facility] - [address] [place] [address] Social History Tobacco Use Types Packs/Day Years Used Date Smoking Tobacco: Never Smokeless Tobacco: Never Alcohol Use Standard Drinks/Week Comments Yes 0 (1 standard drink = 0.6 oz pur e alcohol) Socially Comments No Sex and Gender Information Value [...] on filedocumented in this encounter Care Teams Trust Accounts Supervisor Relationship Specialty Start Date End Date Pcp, Unknown PCP - General 10/03/19 11/13/22 Jamie Lockhart MD [address] [place] [phone] PCP - General Internal Medicine 11/14/22 Brittney Mccurdy NP [address] [place] [address] [email or web address] Historical LMR Provider 01/24/17 Walter Pacheco MD [address] [place] [address] [place] [address] Historical LMR Provider 01/24/17 Rylee Marion FNP [address] [facility] [address] [place] [address] [email or web address] Historical LMR Provider 01/24/17 04/17/21 Shantell Jackman NP [address] [place] [address] [email or web address] Historical LMR Provider 01/24/17 04/17/21 Erinn John MD [address] [facility], [address] [place] [address] Historical LMR Provider 01/24/17 04/17/21 Valentina Vaca NP [address] [place] [phone] Historical LMR Provider 01/24/17 2 Deysi Oneill MD [address] [place] [address] Historical LMR Provider 01/24/17 2 Rik Hernandez MD [address] [place] [address] [email or web address] Historical LMR Provider 01/24/17 04/17/21 Karime Godoy MD [address] [place] [phone] Historical LMR Provider 01/24/17 2 documented as of this encounter Additional Source Comments The information contained in this document represents components of the legal health record. It is not the complete legal health record.[facility]
--- OUTSIDE RECORDS SUMMARY | 2025-03-11 11:07 | XMS_ITS | Encounter Summary ---
Author Organization [facility] Address [address] [facility] [address] [place] [phone] Phone Care Team Providers Care Audio Production Engineer Name Role Phone Simon Emerson MD Primary Care Provider [phone] Brittney Mccurdy SENIOR JAVA UI DEVELOPER Unavailable Walter Pacheco MD Unavailable Rylee Marion TRIPE FINISHER Unavailable [phone] Shantell Jackman NP Unavailable Erinn John MD Unavailable Valentina Vaca NP Unavailable Deysi Oneill MD Unavailable [phone] Rik Hernandez MD Unavailable Karime Godoy MD Unavailable [phone] Bettina Natarajan MD Primary Care Provider Pcp, Unknown Primary Care Provider Unavailabl e Simon Emerson MD Primary Care Provider + [phone] Pcp, Unknown Primary Care Provider Unavailabl e Jamie Lockhart MD Primary Care Prov ider Encounter Details Date Type Department Care Team (Late st Contact Info) Description 12/22/2017 Ancillary Orders Virtual Department [address] [place] [address] Simon Emerson MD [address] [place] [address] Breast screening Social History Tobacco Use Types Packs/Day Years Used Date Smoking Tobacco: Never Smokeless Tobacco: Never Alcohol Use Standard Drinks/Week Comments Yes 0 (1 standard drink = 0.6 oz pur e alcohol) Socially Comments No Sex and Gender Information Value Date Recorded Sex Assigned at Not on file Legal Sex Female 9:46 PM EDT Gender Identity Not on file Sexual Orientation Not on file documented as of this encounter Plan of Treatment Not on file documented as of this encounter Visit Diagnoses Diagnosis Breast screening Breast screening, unspecified documented in this encounter Care Teams Audio Production Engineer Relationship Specialty Start Date End Date Simon Emerson MD [address] [place] [address] [email or web address] PCP - General 01/24/17 12/27/17 Bettina Natarajan MD [address] [place] [address], 2nd [place] [address] [email or web address] PCP - General Internal Medicine 12/28/17 01/13/19 Pcp, Unknown PCP - General 01/14/19 06/30/19 Simon Emerson MD [address] [place] [address] [email or web address] PCP - General Internal Medicine 07/01/19 10/02/19 Pcp, Unknown PCP - General 10/03/19 11/13/22 Jamie Lockhart MD [address] [place] [address] PCP - General Internal Medicine 11/14/22 Brittney Mccurdy NP [address] [place] [address] [email or web address] Historical LMR Provider 01/24/17 Walter Pacheco MD [address] [facility] [address] [place] [address] [email or web address] Historical LMR Provider 01/24/17 Rozinakaylie Rylee CanoROXANN [address] [facility], [address] [place] [address] [email or web address] Historical LMR Provider 01/24/17 04/17/21 Shantell Jackman NP [address] [place] [address] [email or web address] Historical LMR Provider 01/24/17 04/17/21 Erinn John MD [address] [facility] [address], [address] [place] [address] [email or web address] Historical LMR Provider 01/24/17 04/17/21 Valentina Vaca NP [address] [place] [address] [address] [place] [address] Historical LMR Provider 01/24/17 2 Deysi Oneill MD [address] [place] [address] Historical LMR Provider 01/24/17 2 Rik Hernandez MD [address] [place] [address] [email or web address] Historical LMR Provider 01/24/17 04/17/21 Karime Godoy MD 4 [place] [address] Historical LMR Provider 01/24/17 2 documented as of this encounter Additional Source Comments The information contained in this document represents components of the legal health record. It is not the complete legal health record.[facility]
--- OUTSIDE RECORDS SUMMARY | 2025-03-11 11:08 | XMS_ITS | Encounter Summary ---
Author Organization [employer] Address [address] [facility] 7 [place] [address] Care Team Providers Care Plant Hr Manager Name Role Phone Jamie Lockhart MD Primary Care Prov ider Reason for Visit * Reason Onset Date Comments Nurse Triage 10/18/2023 Encounter Details Date Type Department Care Team ([facility] st Contact Info) Description 10/18/[address] [facility] MEDICINE [address] [place] [address] Jamie Lockhart MD [address] [place] [address] Nurse Triage Social History Tobacco Use Types [...] more questions * Telephone Encounter - Makayla Alonzo - 10/18/2023 2:54 PM EDT Symptom: Medication [...] documented as of this encounter Care Teams Plant Hr Manager Relationship Specialty Start Date End Date Jamie Lockhart MD [address] [place] [address] PCP - General Internal Medicine 03/25/19 documented as of this encounter
--- OUTSIDE RECORDS SUMMARY | 2025-03-11 11:08 | XMS_ITS | Encounter Summary ---
Author Organization [employer] Address [address] [facility] 7 [place] [address] Care Team Providers Care Asbestos Cloth Inspector Name Role Phone Jamie Lockhart MD Primary Care Prov ider Reason for Visit * Reason Comments Med Refill Encounter Details Date Type Department Care Team ([facility] Contact Info) Description 02/18/2025 Refill [facility] CHC MED & PEDS [address] [place] [address] Jamie Lockhart MD [address] [place] [address] Migraine, unspecified, not intractable, without status migrainosus Social History Tobacco Use Types Packs/Day Years [...] as of this encounter Visit Diagnoses Diagnosis Migraine, unspecified, not intractable, without status migrainosus documented in this encounter Additional Health Concerns Assessment Noted Time PHQ-9 Depression Total Score: 5 10/02/19 25 3:00 PM EDT documented as of this encounter Care Teams Asbestos Cloth Inspector Relationship Specialty Start Date End Date Jamie Lockhart MD [address] [place] [address] PCP - General Internal Medicine 03/25/19 documented as of this encounter
--- OUTSIDE RECORDS SUMMARY | 2025-03-11 11:08 | XMS_ITS | Encounter Summary ---
Author Organization [employer] Address [address] [facility] [address] 7[address] [place] [address] Care Team Providers Care Developer Evangelist Name Role Phone Jamie Lockhart MD Primary Care Prov ider Encounter Details Date Type Department Care Team (Latest Contact Info) Description 03/10/2025 Travel Social History Tobacco Use Types Packs/Day [...] documented as of this encounter Care Teams Developer Evangelist Relationship Specialty Start Date End Date Jamie Lockhart MD [address] [place] [address] PCP - General Internal Medicine 03/25/19 documented as of this encounter
--- OUTSIDE RECORDS SUMMARY | 2025-03-11 11:08 | XMS_ITS | Encounter Summary ---
Author Organization [employer] Address [address] [facility] 7 [place] [address] Care Team Providers Care Forestry Engineer Name Role Phone Jamie Lockhart MD Primary Care Prov ider Encounter Details Date Type Department Care Team (Late st Contact Info) Description 08/05/2022 Orders Only [facility] CHC MED & PEDS [address] [place] [address] Jamie Lockhart MD [address] [place] [address] Social History Tobacco Use Types Packs/Day Years [...] on filedocumented in this encounter Care Teams Forestry Engineer Relationship Specialty Start Date End Date Jamie Lockhart MD [address] [place] [address] PCP - General Internal Medicine 03/25/19 documented as of this encounter
--- OUTSIDE RECORDS SUMMARY | 2025-03-11 11:08 | XMS_ITS | Encounter Summary ---
Author Organization [employer] Address [address] [facility] 7 [place] [address] Care Team Providers Care Glass Cutter Name Role Phone Jamie Lockhart MD Primary Care Prov ider Reason for Visit * Reason Onset Date Comments Results 07/29/2022 Encounter Details Date Type Department Care Team (Late st Contact Info) Description 07/29/2022 Telephone [facility] MEDICINE [address] [place] [address] Jamie Lockhart MD [address] [place] [address] Results Social History Tobacco Use Types Packs/Day [...] AM EDT TC placed to pt at [phone] in regards to below message. Informed pt of lab results and her cholesterol levels. Pt states she is currently on a diet and losing weight. Informed pt RN would relay message to PCP to inquire. Pt verbalized understanding and will stick to eating healthier to help her cholesterol go down. Pt to f/u PRN. * Telephone Encounter - Dong Trotteros - 07/29/2022 10:21 AM EDT Tc from pt requesting a call back regarding blood work results. Please contact pt at [phone] documented in this encounter Plan of Treatment Not on file documented as of this encounter Visit Diagnoses Not on filedocumented in this encounter Care Teams Glass Cutter Relationship Specialty Start Date End Date LockhartJamie Obando MD [address] [place] [address] PCP - General Internal Medicine 03/25/19 documented as of this encounter
--- OUTSIDE RECORDS SUMMARY | 2025-03-11 11:08 | XMS_ITS | Encounter Summary ---
Author Organization [employer] Address [address] [facility] 7 [place] [address] Care Team Providers Care Rotary Drum Tanner Name Role Phone Jamie Lockhart MD Primary Care Prov ider Encounter Details Date Type Department Care Team (Late st Contact Info) Description 07/18/2022 Orders Only [facility] CHC MED & PEDS [address] [place] [address] Jamie Lockhart MD [address] [place] [address] Social History Tobacco Use Types Packs/Day Years [...] on filedocumented in this encounter Care Teams Rotary Drum Tanner Relationship Specialty Start Date End Date Jamie Lockhart MD [address] [place] [address] PCP - General Internal Medicine 03/25/19 documented as of this encounter
--- OUTSIDE RECORDS SUMMARY | 2025-03-11 11:08 | XMS_ITS | Encounter Summary ---
Author Organization [employer] Address [address] [place] [address] Care Team Providers Care Vascular Specialists Name Role Phone Jamie Lockhart MD Primary Care Prov ider Reason for Visit * Reason Onset Date Comments Referral 11/23/2022 dermatology Encounter Details Date Type Department Care Team ([facility] st Contact Info) Description 11/23/2022 Telephone [facility] CHC MED & PEDS [address] [place], [place] [phone] Jamie Lockhart MD 505 [place] [address] Referral (dermatology) Social History Tobacco Use Types [...] documented as of this encounter Care Teams Vascular Specialists Relationship Specialty Start Date End Date LockhartJamie Obando MD [address] [place] [address] PCP - General Internal Medicine 03/25/19 documented as of this encounter
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
--- OUTSIDE RECORDS SUMMARY | 2025-03-11 11:08 | XMS_ITS | Encounter Summary ---
Author Organization [facility] Address [address] [place] [address] Phone Care Team Providers Care Hops Farmworker Name Role Phone Kaz Brittney Jama CHILD SPECIALIST Unavailable Walter Pacheco MD Unavailable Rylee Marion FURNITURE MECHANIC Unavailable [phone] Shantell Jackman CHILD SPECIALIST Unavailable Erinn John MD Unavailable [phone] Valentina Vaca CHILD SPECIALIST Unavailable Deysi Oneill MD Unavailable Rik Hernandez MD Unavailable Karime Godoy MD Unavailable [phone] Pcp, Unknown Primary Care Provider Unavailabl Simon Leiva MD Primary Care Provider [phone] Pcp, Unknown Primary Care Provider UnavailJamie Worthington MD Primary Care Prov ider Encounter Details Date Type Department Care Team (Late st Contact Info) Description 05/30/2019 Ancillary Orders [facility]uri [facility] [address] [place] [address] Anmol Bhakta MD [address] [facility], [address] [place] [address] [email or web address] Breast screening Social History Tobacco Use Types [...] on file documented as of this encounter Results * BI MAMMOGRAM SCREENING WITH TOMOSYNTHESIS WITH CAD (BILATERAL) (10/03/2019 1:50 PM EDT) Anatomical Region Laterality Modality Breast Left, Breast Right, Breast Bilateral Bila teral Mammography 10/03/2019 2:14 PM EDT Impressions 10/03/2019 2:17 PM EDT No mammographic evidence of malignancy. Recommend routine annual surveillance. BI-RADS CATEGORY: 1 - Negative. DENSITY: There are scattered fibroglandular densities. POS - CDHMAMA Narrative 10/03/2019 2:17 PM EDT 59-year-old female with no current breast symptoms. Comparison made to previous on 12/28/2017 and as far back as 08/29/2013. Interpretation made in conjunction with computer-aided detection and tomosynthesis. There are scattered areas of fibroglandular density. There are no suspicious masses, areas of architectural distortion, or suspicious clusters of microcalcifications. Procedure Note Wilner Brown MD - 10/03/2019 59-year-old female with no current breast symptoms. Comparison made toprevious on 12/28/2017 and as far back as 08/29/2013. Interpretation madein conjunction with computer-aided detection and tomosynthesis. There are scattered areas of fibroglandular density. There are no suspicious masses, areas of architectural distortion, orsuspicious clusters of microcalcifications. IMPRESSION: No mammographic evidence of malignancy. Recommend routine annualsurveillance. BI-RADS CATEGORY: 1 - Negative. DENSITY: There are scattered fibroglandular densities. POS - CDHMAMA Anmol Bhakta MD IMG MG EXAMS Final Result documented in this encounter Visit Diagnoses Diagnosis Breast screening Breast screening, unspecified Breast screening Breast screening, unspecified documented in this encounter Care Teams Hops Farmworker Relationship Specialty Start Date End Date Pcp, Unknown PCP - General 01/14/19 06/30/19 Simon Emerson MD [address] [place] [address] [email or web address] PCP - General Internal Medicine 07/01/19 10/02/19 Pcp, Unknown PCP - General 10/03/19 11/13/22 Jamie Lockhart MD [address] [place] [phone] PCP - General Internal Medicine 11/14/22 Brittney Mccurdy NP [address] [place] [address] [email or web address] Historical LMR Provider 01/24/17 Walter Pacheco MD 22 [facility] 102 [place] [address] Historical LMR Provider 01/24/17 Rylee Marion FNP [address] [place] [address] 204, [address] [place] [address] [email or web address] Historical LMR Provider 01/24/17 04/17/21 Shantell Jackman NP [address] [place] [address] [email or web address] Historical LMR Provider 01/24/17 04/17/21 Erinn John MD 38 [facility]. 204, [address] [place] [address] [email or web address] Historical LMR Provider 01/24/17 04/17/21 Valentina Vaca NP 71 [facility] 101 [place] [id number] Historical LMR Provider 01/24/17 2 Deysi Oneill MD [address] [place] [address] Historical LMR Provider 01/24/17 2 Rik Hernandez MD [address] [facility] [address] [place] [address] [email or web address] Historical LMR Provider 01/24/17 04/17/21 Karmie Godoy MD [address] [place] [address] Historical LMR Provider 01/24/17 2 documented as of this encounter Additional Source Comments The information contained in this document represents components of the legal health record. It is not the complete legal health record.[facility]
--- OUTSIDE RECORDS SUMMARY | 2025-03-11 11:08 | XMS_ITS | Encounter Summary ---
Author Organization [employer] Address [address] 7 [place] [address] Care Team Providers Care Slitter Helper Name Role Phone Jamie Lockhart MD Primary Care Prov ider Reason for Visit * Reason Comments Med Refill Encounter Details Date Type Department Care Team ([facility] st Contact Info) Description 03/28/2024 Refill [facility] PEDS [address] [place] [address] Jamie Lockhart MD 505 [place] [address] Social History Tobacco Use Types Packs/Day Years [...] documented as of this encounter Care Teams Slitter Helper Relationship Specialty Start Date End Date Jamie Lockhart MD [address] [place] [address] PCP - General Internal Medicine 03/25/19 documented as of this encounter
--- OUTSIDE RECORDS SUMMARY | 2025-03-11 11:08 | XMS_ITS | Encounter Summary ---
Author Organization [facility] Address [address] [facility] [address] [place] [address] Phone Care Team Providers Care Drill Runner Name Role Phone Kaz Brittney Jama RN PSYCH Unavailable Walter Pacheco MD Unavailable Rylee Marion BILLET INSPECTOR Unavailable Shantell Jackman RN PSYCH Unavailable [phone] Erinn John MD Unavailable Valentina Vaca RN PSYCH Unavailable Deysi Oneill MD Unavailable [phone] Rik Hernandez MD Unavailable [phone] Karime Godoy MD Unavailable [phone] Bettina Natarajan MD Primary Care Provider Pcp, Unknown Primary Care Provider Unavailabl Simon Leiva MD Primary Care Provider [phone] Pcp, Unknown Primary Care Provider UnavailJamie Worthington MD Primary Care Prov ider Encounter Details Date Type Department Care Team (Late st Contact Info) Description 12/28/2017 Ancillary Orders Lauri [facility] [address] [place] [address] [place] [address] Bettina Natarajan MD [address] [place] [address], [address] [place] [address] [email or web address] Breast screening Social History Tobacco Use Types [...] MAMMOGRAM SCREENING WITH TOMOSYNTHESIS WITH CAD (BILATERAL) (12/28/2017 3:48 PM EDT) Anatomical Region Laterality Modality Breast Left, Breast Right, Breast Bilateral Bila teral Mammography 12/29/2017 8:51 AM EDT Impressions 12/29/2017 8:53 AM EDT No mammographic signs of malignancy. Annual screening is recommended. BI-RADS CATEGORY: 1 - Negative. DENSITY: There are scattered fibroglandular densities. POS - CDHMAMA Narrative 12/29/2017 8:53 AM EDT Bilateral mammography is performed in conjunction with computed aided detection. 3-D tomography along with 2-D C view imaging was also performed. Comparison made to previous dated as far back as 07/17/2012 and as recent as 11/30/2016. No suspicious masses, areas of architectural distortion or suspicious microcalcifications. Procedure Note Uday Grace MD - 12/29/2017 Bilateral mammography is performed in conjunction with computed aideddetection. 3-D tomography along with 2-D C view imaging was alsoperformed. Comparison made to previous dated as far back as 07/17/2012 andas recent as 11/30/2016. No suspicious masses, areas of architectural distortion or suspiciousmicrocalcifications. IMPRESSION: No mammographic signs of malignancy. Annual screening is recommended. BI-RADS CATEGORY: 1 - Negative. DENSITY: There are scattered fibroglandular densities. POS - CDHMAMA us Bettina Natarajan MD IMG MG EXAMS Final Resul t documented in this encounter Visit Diagnoses Diagnosis Breast screening Breast screening, unspecified Breast screening Breast screening, unspecified documented in this encounter Care Teams Drill Runner Relationship Specialty Start Date End Date Bettina Natarajan MD [address] [place] [address], 2[address] [place] [address] PCP - General Internal Medicine 12/28/17 01/13/19 Pcp, Unknown PCP - General 01/14/19 06/30/19 Simon Emerson MD [address] [place] [address] [email or web address] PCP - General Internal Medicine 07/01/19 10/02/19 Pcp, Unknown PCP - General 10/03/19 11/13/22 Jamie Lockhart MD [address] [place] [address] PCP - General Internal Medicine 11/14/22 Brittney Mccurdy NP [address] [place] [address] [email or web address] Historical LMR Provider 01/24/17 Walter Pacheco MD 22 [facility], [facility] 102 [place] [address] Historical LMR Provider 01/24/17 Ryele Marion FNP [address] [place] [address] 204, [address] [place] [address] [email or web address] Historical LMR Provider 01/24/17 04/17/21 [place] [address] [email or web address] Historical LMR Provider 01/24/17 04/17/21 Erinn John MD 38 [facility]. 204, [address] [place] [address] [email or web address] Historical LMR Provider 01/24/17 04/17/21 Valentina Vaca NP [address] [phone] Historical LMR Provider 01/24/17 2 Deysi Oneill MD [address] [place] [address] Historical LMR Provider 01/24/17 2 Rik Hernandez MD [address] [place] [address] [email or web address] Historical LMR Provider 01/24/17 04/17/21 Karime Godoy MD [address] [place] [address] Historical LMR Provider 01/24/17 2 documented as of this encounter Additional Source Comments The information contained in this document represents components of the legal health record. It is not the complete legal health record.[facility]
--- OUTSIDE RECORDS SUMMARY | 2025-03-11 11:08 | XMS_ITS | Clinical Summary ---
Author Organization [facility] Address [address] [facility] [address] [place] [address] Phone Care Team Providers Care Boot And Shoe Laborer Name Role Phone Walter Pacheco MD Unavailable LockhartJamie Groves MD Primary Care Prov ider Allergies No known active allergies Medications venlafaxine HCl (EFFEXOR XR ORAL) Take 75 mg by mouth nightly at bedtime. Active SUMAtriptan (IMITREX) 50 MG tablet 2 Active propranoloL (INDERAL) 60 MG immediate release tablet Take 1 tablet by mouth 2 (two) times a day. 3 Active progesterone (PROMETRIUM) 100 mg capsuleIndicati ons:Hot flashes Take 1 capsule (100 mg total) by mouth daily. 30 capsule 2 5 Active estradioL (VIVELLE-DOT) 0.05 mg/24 hrIndications:H ot flashes Place 1 patch onto the skin 2 (two) times a week. 8 patch 2 5 Active progesterone (PROMETRIUM) 100 mg capsuleIndicati ons:Hot flashes Take 1 capsule (100 mg total) by mouth daily. 30 capsule 12 5 02/12/20 25 Discontinu ed(Reorder ) estradioL (VIVELLE-DOT) 0.05 mg/24 hrIndications:H ot flashes Place 1 patch onto the skin 2 (two) times a week. 8 patch 12 5 02/12/20 25 Discontinu ed(Reorder ) Active Problems Problem Noted Date Diagnosed Date Hormone replacement therapy 01/17/2023 Assessment & Plan (01/17/2023 4:17 PM EDT): She would like to continue with the HRT, particular as she has noted some hot flashes. However, it is possible that the symptoms she is experiencing may not be due to her menopausal status. I did recommend that we check a TSH to make sure her thyroid level is normal. Small increased risks of breast cancer, heart attack, stroke, and VTE reviewed with the patient. Encounters Date Type Department Care Team Description 02/11/2025 Refill Lauri [facility] [address] [place] [address] [place] [address] Anmol Bhakta MD Medication Refill from Last 3 Months Immunizations Immunization Administration Dates Next Due COVID-19 (Pre-01/30) Pfizer Vaccine, mRNA, PF 05/23/2020 INFLUENZA, SPLIT VIRUS, TRIVALENT PF 01/06/2016 INFLUENZA, SPLIT VIRUS, TRIV ALENT W/ PRESERVATIVE IM 01/11/2017,02/21/2012 Influenza Quadrivalent Prese rvative Free IM 02/05/2021,03/08/2018,01/11/2017,2014 Influenza Quadrivalent w/ Preservative IM 01/31/2020,01/02/2019,01/07/2016 PPD Test 09/24/2014, 5,11/04/2011,2011 Tdap 12/05/2019,10/14/2016,02/21/2012 Family History Medical History Relation Comments HIV Brother CV disease Father Hypertension Father Cancer Maternal Aunt Breast cancer Maternal Cousin MATERNAL FIRST C OUSIN CV disease Maternal Grandfather Lung cancer Maternal Grandmother Hypertension Mother Pancreatic cancer Mother Ovarian cancer Paternal Grandmother Stroke Sibling Relation Status Comments Brother Father Maternal Aunt Maternal Cousin Other Maternal Grandfather Maternal Grandmother Mother Paternal Grandfather Paternal Grandmother Sibling Sister 1 Alive Sister 2 Alive Social History Tobacco Use Types Packs/Day Years [...] file Not on file Not on file Last Filed Vital Signs Vital Sign Reading Time Taken Comments Blood Pressure 144/80 06/06/2024 3:38 PM EST Pulse - - Temperature - - Respiratory Rate - - Oxygen Saturation - - Inhaled Oxygen Concentration - - Weight 79.4 kg (175 lb) 06/06/2024 3:38 PM EST Height 170.2 cm (5' 7 ) 06/06/2024 3:38 PM EST Body Mass Index 27.41 06/06/2024 3:38 PM EST Plan of Treatment Health Maintenance Due Date Last Done Comments LIPID PANEL 1961 DEPRESSION SCREENING 1973 HEPATITIS C SCREENING 08/04/1979 HIV ONE-TIME SCREENING (18-65 YEARS) 08/04/1979 SCREENING FOR DIABETES 1996 COLOGUARD 2006 FIT TEST 2006 FOBT 2006 SIGMOIDOSCOPY 2006 VIRTUAL COLONOSCOPY 2006 PNEUMOCOCCAL VACCINES (50+ years) (1 of 1 - PCV) 08/04/2011 ZOSTER VACCINES (1 of 2) 08/04/2011 INFLUENZA VACCINE (#1) 2024 , 04/08/2022, 02/05/2021, Additional history exists COVID-19 VACCINE ( season) 2024 04/08/2022, 04/16/2021, 06/13/2020, Additional history exists MAMMOGRAM 01/15/2025 01/16/2024, 08/0 10/2022, 11/14/2022, Additional history exists PAP SMEAR 01/17/2026 01/17/2023, 0608/2019, 10/03/2019, Additional history exists COLONOSCOPY 09/07/2026 09/07/2016 COLORECTAL CANCER SCREENING 09/07/2026 Adult Td,Tdap Booster 12/04/2029 12/05/2019 , 10/14/2016, 02/21/2012 RSV VACCINE (1 - 1-dose 75+ series) 2036 SMOKING STATUS SCREENING (Once After 26 Yrs) Completed 06/06/2024 HEPATITIS A VACCINES Aged Out No long er eligible based on patient's age to complete this topic HIB VACCINES Aged Out No longer eligi ble based on patient's age to complete this topic MENINGOCOCCAL VACCINES (ACWY) Aged Out No longer eligible based on patient's age to complete this topic MENINGOCOCCAL VACCINES (B) Aged Out N o longer eligible based on patient's age to complete this topic Medical Devices Not on file Procedures Procedure Name Priority Date/Time Associated Diagnosis Comments BI MAMMOGRAM SCREENING WITH TOMOSYNTHESIS WITH CAD (BILATERAL) Routine 01/16/2024 1:03 PM EDT Breast screening PAP TEST Routine 01/17/2023 12:00 AM EDT HM COLONOSCOPY FOR RESULT ENTRY ONLY Routine 09/07/2016 from Last 3 Months or Most Recently Relevant to Health Maintenance Results * BI MAMMOGRAM SCREENING WITH TOMOSYNTHESIS WITH CAD (BILATERAL) (01/16/2024 1:03 PM EDT) Anatomical Region Laterality Modality Breast Left, Breast Right, Breast Bilateral Bila teral Mammography 01/17/2024 11:2 1 AM EDT Impressions 01/17/2024 11:22 AM EDT No mammographic evidence of malignancy in either breast. Annual screening mammography is recommended. BI-RADS 1 NEGATIVE The patient will be notified of the results and recommendations. Narrative 01/17/2024 11:22 AM EDT BI MAMMOGRAM SCREENING WITH TOMOSYNTHESIS WITH CAD (BILATERAL) Additional patient information: Screening. COMPARISON: Comparison is made with relevant prior imaging. Breast composition: There are scattered areas of fibroglandular density. FINDINGS: No abnormal masses, suspicious calcifications, or other significant findings are identified mammographically in either breast. There has been no interval change. Procedure Note Eugenia Brito MD - 01/17/2024 BI MAMMOGRAM SCREENING WITH TOMOSYNTHESIS WITH CAD (BILATERAL) Additional patient information: Screening. COMPARISON: Comparison is made with relevant prior imaging. Breast composition: There are scattered areas of fibroglandular density. FINDINGS: No abnormal masses, suspicious calcifications, or other significantfindings are identified mammographically in either breast. There has been no interval change. IMPRESSION: No mammographic evidence of malignancy in either breast. Annual screening mammography is recommended. BI-RADS 1 NEGATIVE The patient will be notified of the results and recommendations. Jamie Pearson MD IMG MG EXAMS Fi nal Result * Pap Test (01/17/2023 12:00 AM EDT) 01/17/2023 01/18/2023 9:3 6 AM EDT Narrative SEE NARRATIVE - 01/24/2023 3:11 PM EDT [address] [address] [place] [employer] Core Layer: Erinn Pereira MD WHEEL BUFFER Cytology Report FINAL DIAGNOSIS A. PAP SMEAR (SUREPATH) CE: SPECIMEN ADEQUACY: Satisfactory for evaluation; transformation zone present. INTERPRETATION: NEGATIVE FOR INTRAEPITHELIAL LESION OR MALIGNANCY. Reactive changes. Electronically Signed Out By: MD Marie Woodward CT(ASCP) By his/her signature above, the pathologist listed as making the Final Diagnosis certifies that he/she has personally reviewed this case and confirmed or corrected the diagnosis. The Pap test is a screening test primarily for squamous cancers and precursors and has associated false-negative and false-positive results. New technologies such as liquid-based preparations may decrease but will not eliminate all false-negative results. Regular sampling and follow-up of unexplained clinical signs and symptoms are recommended to minimize false negative results. PROCEDURES/ADDENDA HPV Testing (Requested) Ordered Date: 01/18/2023 A. PAP SMEAR (SUREPATH) CE: Human Papilloma Virus Test NEGATIVE for high-risk Human Papilloma Virus types 16, 18, 45 and the Other high risk probe set (Includes 31, 33, 35, 39, 51, 52, 56, 58, 59, 66, 68) Note: Testing performed by [employer] Onclarity HR-HPV analysis. Clinical correlation is advised. This HPV test was performed at [facility], [address] [place] [address]. This test has been FDA approved for SurePath cervical cytology specimens. The accuracy and precision of this test for all other specimen sources has been verified in the Cytopathology Laboratory of the [facility] and has not been cleared or approved by the U.S. Food and Drug Administration. Clinical correlation is advised. CLINICAL HISTORY Date of Last Menstrual Period: 01-15-2015 Menstrual History: Post Menopausal Treatment History: Hormone Therapy Other Clinical Conditions: Screening Pap SPECIMEN SOURCE A: PAP SMEAR (SUREPATH) CE Patient Name: ROLAND VIDALCY : 1960 (Age: 62) Sex: F Institution: [facility] Location: [facility] Date of Collection: 01/17/2023 Date of Reported: 01/24/2023 15:11 Results to: Anmol Bhakta MD, BS Anmol Bhakta MD CYTOLOGY ORDERABLES Final Res ult SEE NARRATIVE * COLONOSCOPY FOR RESULT ENTRY ONLY (09/07/2016) Colonoscopy External Historical Provider HEALTH MAINTENANCE Final Result from Last 3 Months or Most Recently Relevant to Health Maintenance Insurance [facility] CONNE[facility] DIRECT [facility] DIRECT [facility] DIRECT [place] [facility] DIRECT [place] [facility] DIRECT [place], [place] Care Teams Boot And Shoe Laborer Relationship Specialty Start Date End Date Jamie Lockhart MD [address] [place] [address] PCP - General Internal Medicine 11/14/22 Walter Pacheco MD 22 [facility], [facility] [address] [place] [address] [email or web address] Historical LMR Provider 01/24/17 Additional Source Comments The information contained in this document represents components of the legal health record. It is not the complete legal health record.[facility]
--- OUTSIDE RECORDS SUMMARY | 2025-03-11 11:08 | XMS_ITS | Encounter Summary ---
Author Organization [facility] Address [address] [facility] [place] [facility] [address] [place] [address] Phone Care Team Providers Care Financial Specialist Name Role Phone Walter Pacheco MD Unavailable Pcp, Unknown Primary Care Provider Unavailabl e Jamie Lockhart MD Primary Care Prov ider Encounter Details Date Type Department Care Team (Late st Contact Info) Description 11/03/2022 Procedure Pass [address] [place] [address] Social History Tobacco Use Types Packs/Day Years [...] on filedocumented in this encounter Care Teams Financial Specialist Relationship Specialty Start Date End Date Pcp, Unknown PCP - General 10/03/19 11/13/22 Jamie Lockhart MD [address] [place] [address] PCP - General Internal Medicine 11/14/22 Walter Pacheco MD [address] [place] [address], [facility] [address] [place] [address] [email or web address] Historical LMR Provider 01/24/17 documented as of this encounter Additional Source Comments The information contained in this document represents components of the legal health record. It is not the complete legal health record.[facility]
--- OUTSIDE RECORDS SUMMARY | 2025-03-11 11:08 | XMS_ITS | Encounter Summary ---
Author Organization [employer] Address [address] [place] [address] 7 [place] [address] Care Team Providers Care Environmental Compliance Inspector Name Role Phone Jamie Lockhart MD Primary Care Prov ider Encounter Details Date Type Department Care Team ([facility] st Contact Info) Description 08/10/2022 Orders Only [facility] [address] [place] [address] Johana Alarcon LPN Social History Tobacco Use [...] on filedocumented in this encounter Care Teams Environmental Compliance Inspector Relationship Specialty Start Date End Date Jamie Lockhart MD [address] [place] [address] PCP - General Internal Medicine 03/25/19 documented as of this encounter
--- OUTSIDE RECORDS SUMMARY | 2025-03-11 11:08 | XMS_ITS | Encounter Summary ---
Author Organization [employer] Address [address] [facility] 7 [place] [address] Care Team Providers Care Od Grinder Operator Name Role Phone Jamie Lockhart MD Primary Care Prov ider Reason for Visit * Reason Onset Date Comments Referral 12/22/2022 Encounter Details Date Type Department Care Team ([facility] st Contact Info) Description 12/22/2022 Telephone [facility]S [address] [place], [place] [phone] Jamie Lockhart MD [address] [place] [address] Referral Social History Tobacco Use Types Packs/Day [...] left for patient that they are no it associate in the area that accepts her insurance. I advised her to call her insurance to see if they can provide any information of it associate that will accept her insurance and call us and we will fax referral. * Telephone Encounter - Christina Alma - 12/22/2022 8:23 AM EDT Tc from [...] documented as of this encounter Care Teams Od Grinder Operator Relationship Specialty Start Date End Date Jamie Lockhart MD [address] [place] [address] PCP - General Internal Medicine 03/25/19 documented as of this encounter
--- OUTSIDE RECORDS SUMMARY | 2025-03-11 11:08 | XMS_ITS | Encounter Summary ---
Author Organization [employer] Address [address] [facility] [address] [place] [address] Care Team Providers Care Char Filter Operator Helper Name Role Phone Jamie Lockhart MD Primary Care Prov ider Reason for Visit * Reason Onset Date Comments Triage 03/15/2022 Encounter Details Date Type Department Care Team (Late st Contact Info) Description 03/15/2022 Refill [facility] MEDICINE [address] [place] [address] Jamie Lockhart MD [address] [place] [address] Social History Tobacco Use Types Packs/Day Years [...] call Pt reports testing positive for Covid 12/13 PM. 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
== END 2025-03-11 09:55 | disposition home or self-care (01) ==
LOC: HO.NEURO 09:54
PROVIDERS: PCP Internal Medicine; Visit Provider Internal Medicine
DX: R20.0 Anesthesia of skin (principal)
CPT/HCPCS: 95886; 95910

== ENCOUNTER → 2025-03-11 10:05 | Outpatient (BNV) | payer MEDICAID, SELFPAY | PROVIDERS: PCP Internal Medicine; Visit Provider Psychiatry & Neurology Neurology | DX: R20.0 Anesthesia of skin (principal) | CPT/HCPCS: 95886; 95911 ==

== ENCOUNTER 2025-03-24 09:44 | Outpatient (REF) | payer MEDICAID, SELFPAY ==
[2025-03-24 14:32] LABS: MANUAL DIFF FLAG NO
[2025-03-24 14:42] LABS: Hematocrit 44.5 % (37.0-47.0); Hemoglobin 14.1 g/dl (12.0-16.0); Imm Gran Abs Auto 0.04 X10*3/uL (0.00-0.03); Imm Gran Pct Auto 0.5 % (0.0-0.4); Lymphocytes Absolute Auto 2.7 X10*3/uL (1.2-4.9); Mean Corpuscular HGB Conc 31.7 g/dl (31.0-35.0); Mean Corpuscular Hemoglobin 30.5 pg (27.0-33.0); Mean Corpuscular Volume 96.3 fL (80.0-98.0); NRBC Abs Auto 0.000 X10*3/uL (0.0-0.012); NRBC Pct Auto 0.0 /100WBC (0.0-0.2); Platelet Count 394 X10*3/uL (160-400); Red Blood Count 4.62 X10*6/uL (4.20-5.50); White Blood Count 8.8 X10*3/uL (4.8-10.8)
[2025-03-24 15:12] LABS: Alanine Aminotransferase 52 U/L (0-31); Albumin Level 4.0 g/dL (3.5-5.0); Alkaline Phosphatase 140 U/L (39-117); Anion Gap 13 (12-20); Aspartate Amino Transferase 50 U/L (5-31); Blood Urea Nitrogen 16 mg/dL (9-16); Calcium 8.8 mg/dL (8.4-10.2); Carbon Dioxide 25 mmol/L (22-29); Chloride 106 mmol/L (96-108); Cholesterol 202 mg/dL (<200); Estimated Glomerular Filt Rate > 60; HDL Cholesterol 53 mg/dL (>40); Potassium 4.0 mmol/L (3.3-5.1); Sodium 140 mmol/L (135-145); Total Protein 6.7 g/dL (6.5-8.0); Triglycerides 133 mg/dL (<150)
== END 2025-03-24 09:45 | disposition home or self-care (01) ==
LOC: HO.CHCLDS 09:44
PROVIDERS: Visit Provider Internal Medicine
DX: R53.83 Other fatigue (principal)
CPT/HCPCS: 36415; 80053; 80061; 84443; 85025